=== PATIENT | male | born 1965 | race Caucasian/White ===

== ENCOUNTER 2018-05-20 15:46 | Inpatient (IN) ==
[2018-05-20] MEDS ORDERED: Ipratropium/Albuterol Neb 3 ML IH ONE (17:23)
--- NOTE | 2018-05-20 17:27 | Emergency Department Note ---
Disposition Clinical Impression: Elevated d-dimer, Transaminitis, Concern about cancer without diagnosis, Elevated lipase, Hyperbilirubinemia, Lactic acidosis Leukocytosis Qualifiers: Leukocytosis type: unspecified Qualified Code(s): D72.829 - Elevated white blood cell count, unspecified Disposition: Admitted As Inpatient Condition: Fair Referrals: Pilar Hilliard MD [Primary Care Provider] - Forms: ED Satisfaction Letter, Work/School Release Time of Disposition: 21:31 General Adult HPI - General Chief complaint: ED Abdominal Pain Stated complaint: ABD Pain Time Seen by Provider: 05/20/18 17:11 Source: patient, family Mode of arrival: ambulatory Limitations: no limitations Nursing Notes Reviewed: Yes Vital Signs Reviewed: Yes - History of Present Illness HPI Narrative: Patient is a 52-year-old male that since emergency department with abdominal pain. Patient states that he has not been able to have a significant bowel movement for the past couple of days. Patient states that he has a previous history of a bowel obstruction about 16 years ago. Patient states that it did require surgery and a bowel resection. Patient states that he has had minimal gas production. States that this is abnormal for him. Patient also states that he has had a firm area in his right upper abdomen that has moved into the epigastric region. Patient states that he has not had any chest pain was in experiencing increased shortness of breath. Patient states that he does have a history of COPD does not wear any oxygen at home. Pain Scale: 9 - Related Data Home Medications Medication Instructions Recorded Confirmed Albuterol Sulfate [Albuterol 1 - 2 puff IH Q4HR 03/09/15 03/09/15 Inhaler] Atorvastatin [Lipitor] 40 mg PO DAILY 03/09/15 03/09/15 Losartan [Cozaar] 50 mg PO DAILY 03/09/15 03/09/15 amLODIPine [Norvasc] 10 mg PO DAILY 03/09/15 03/09/15 Previous Rx's Medication Instructions Recorded Aspirin Enteric Coated [Aspirin EC] 81 mg PO DAILY #30 tablet. 03/14/15 Cilostazol [Pletal] 100 mg PO BID #60 tablet 03/14/15 Clopidogrel [Plavix] 75 mg PO DAILY #30 tablet 03/14/15 Levofloxacin [Levaquin] 500 mg PO DAILY #3 tablet 03/14/15 Morphine Sulfate SR (12 HR) [MS 15 mg PO Q12HR #60 tablet.er 03/14/15 Contin] OxyCODONE/APAP 5/325 [Percocet 2 each PO Q6HR PRN #90 tablet 03/14/15 5/325] Polyethylene Glycol 3350 [MiraLAX] 17 gm PO DAILY #10 powd.pack 03/14/15 Sennosides [Senna] 8.6 mg PO BID #60 tablet 03/14/15 Allergies Allergy/AdvReac Type Severity Reaction Status Date / Time Penicillins [PCN] Allergy Anaphylaxis Verified 05/20/18 16:15 All systems ED: reviewed and negative except as stated. Constitutional: Denies: fever Cardiovascular: Denies: chest pain Respiratory: Reports: dyspnea Gastrointestinal: Reports: abdominal pain, nausea, constipation. Denies: vomiting, diarrhea Past Medical History - Past Medical History Medical history: Reports: COPD, hypertension, other Surgical history: Reports: appendectomy, cholecystectomy, colectomy, hernior rhaphy, other Psychiatric history: Reports: no psych history - Social History Smoking Status: Current every day smoker Smokeless Tobacco Status: No Alcohol use: Reports: occasionally Drug use: Reports: none Physical Exam - General Limitations: no limitations General appearance: alert, in no apparent distress - Head Head exam: atraumatic, normocephalic - Eye Eye exam: Present: normal appearance - Neck Neck exam: Present: normal inspection, full ROM, trachea midline - Respiratory Respiratory exam: Present: wheezes (Bilaterally) - Cardiovascular Cardiovascular exam: Present: normal rhythm, normal heart sounds, +S1, +S2 - Abdominal Exam Abdominal exam: Present: soft, normal bowel sounds, mass (Epigastric region ) Abdominal tenderness: Present: epigastrium, moderate - Neurological Exam Neurological exam: Present: alert, oriented X3 - Psychiatric Psychiatric exam: Present: normal affect, normal mood - Skin Skin exam: Present: warm, dry, intact Course Vital Signs Temperature 98.8 F 05/20/18 16:13 Pulse Rate 98 05/20/18 16:13 Respiratory Rate 18 05/20/18 16:13 Blood Pressure 156/102 05/20/18 16:13 O2 Sat by Pulse Oximetry 97 05/20/18 16:13 Temperature 98.8 F 05/20/18 17:30 Pulse Rate 120 05/20/18 21:00 Respiratory Rate 21 05/20/18 21:00 Blood Pressure 144/106 05/20/18 21:00 O2 Sat by Pulse Oximetry 94 05/20/18 21:00 Oxygen Delivery Oxygen Delivery Nasal Cannula Medical Decision Making - MDM Narrative Medical decision making narrative: Due the patient presented emergency Department with reports of feeling like he cannot go to the bathroom and have a bowel movement we will obtain basic laboratory testing as well as a CT scan of the abdomen and pelvis. 1832 patient's d-dimer came back elevated at greater than 16,000. We will obtain a CTA of the chest to evaluate for possible clot burden. 1938 patient has a significant transaminitis. This is elevated more than his previous laboratory testing. Patient also has an elevated lipase of 87. Patient has an elevated white blood cell count. Patient does have evidence of nitrates and small amount of leukocyte esterase in his urine. Patient denied any urinary. At this time the CTA of the chest and the CT of the abdomen and pelvis with IV and oral contrast is pending. Final disposition pending workup however I anticipate that the patient will likely need to be admitted to the hospital for further evaluation and management. 2049 radiology called to notify me that the patient has significant findings on his CT of the chest abdomen pelvis. There is concern for metastatic disease throughout the entire chest abdomen and pelvis. States that there is been lesions seen on the liver as well as bony metastases at L2. There is difficulty identifying the primary source of the cancer or lesion. Based on these findings there is a discussion had with the patient and he was informed that there is a likely metastatic cancer that is been identified here in the ER. Read informed him that he would need to be admitted to the hospital for further evaluation and management and symptomatically control of his abdominal pain at this time. Patient is in agreement with this plan. 2309 called spoke the admitting hospitalist Dr. Hubbard and he is accepted the patient to their service. He did request that we add on a one-time dose of Levaquin to cover for possible infectious etiology. This will be done. Patient be admitted to the hospital this time for further evaluation and management. - Medical Records Medical records reviewed: Yes I reviewed the patient's medical records. - Lab Data Lab results reviewed: Yes I reviewed the patient's lab results. Result diagrams: 05/20/18 17:34 05/20/18 17:34 Lab Results 05/20/18 05/20/1805/20/18 Range/Units 17:34 17:34 17:34 WBC 16.8 H (4.3-11.1) K/mcL RBC 6.18 H (4.19-5.50) M/mcL Hgb 18.4 H (12.9-16.9) g/dL Hct 56.3 H (37.5-50.1) % MCV 91.1 (83.0-100.0) fL MCH 29.8 (28.0-33.3) pg MCHC 32.7 (31.6-35.5) g/dL RDW 14.3 (11.5-14.5) % Plt Count 185 (140-400) K/mcL MPV 11.1 (9.4-12.4) fL Immature Gran % 3.5 (0-4) % Seg Neutrophils % 76.5 % Lymphocytes % 12.2 % Monocytes % 6.6 % Eosinophils % 0.4 % Basophils % 0.8 % Neutrophils # 12.8 H (1.6-8.9) K/mcL Lymphocytes # 2.1 (0.6-4.6) K/mcL Monocytes # 1.1 (0.0-1.3) K/mcL Eosinophils # 0.1 (0.0-0.6) K/mcL Basophils # 0.1 (0.0-0.2) K/mcL Nucleated RBCs/100 WBC 0.3 H (0) /100 WBC D-Dimer 50830 H (0-500) ng/mLFEU Sodium 135 L (136-145) mEq/L Potassium 4.0 (3.5-5.1) mEq/L Chloride 97 L (98-107) mEq/L Carbon Dioxide 24 (23-29) mEq/L BUN 18 (6-20) mg/dL Creatinine 0.70 (0.70-1.30) mg/dL Est GFR ( Amer) > 60 (> 60) Est GFR (Non-Af Amer) > 60 (> 60) BUN/Creatinine Ratio 26 (6-26) Glucose 128 H (70-105) mg/dL Calculated Osmolality 284 (280-300) Lactic Acid (0.5-2.2) mmol/L Calcium 9.6 (8.6-10.3) mg/dL Total Bilirubin 4.4 H (0.3-1.0) mg/dL Direct Bilirubin 2.9 H (0.0-0.2) mg/dL Indirect Bilirubin 1.5 H (0.0-1.2) mg/dL AST 219 H (13-39) Units/L ALT 128 H (7-52) Units/L Alkaline Phosphatase 523 H (34-104) Units/L Troponin I 0.03 (< 0.04) ng/mL Serum Total Protein 7.1 (6.4-8.9) g/dL Albumin 3.4 L (3.5-5.7) g/dL Globulin 3.7 H (2.4-3.5) g/dL Albumin/Globulin Ratio 0.9 L (1.1-2.2) Lipase 87 H (11-82) Units/L Urine Color (Yellow) Urine Clarity (Clear) Urine pH (5.0-8.0) pH Units Ur Specific [place] (1.010-1.025) Urine Protein (Neg-Trace) mg/dL Urine Glucose (UA) (Normal) mg/dL Urine Ketones (Negative) mg/dL Urine Blood (Negative) Urine Nitrite (Negative) Urine Bilirubin (Negative) Urine Urobilinogen (Normal) mg/dL Ur Leukocyte Esterase (Negative) Urine Microscopic RBC (0-3) per hpf Urine Microscopic WBC (0-3) per hpf Ur Squamous Epith Cells (None-Few) per lpf Urine Bacteria (None-Few) per hpf Hyaline Casts (None-Few) per lpf Ur Culture Indicated? (NO) 05/20/18 05/20/18 05/20/18 Range/Units 17:44 18:35 21:26 WBC (4.3-11.1) K/mcL RBC (4.19-5.50) M/mcL Hgb (12.9-16.9) g/dL Hct (37.5-50.1) % MCV (83.0-100.0) fL MCH (28.0-33.3) pg MCHC (31.6-35.5) g/dL RDW (11.5-14.5) % Plt Count (140-400) K/mcL MPV (9.4-12.4) fL Immature Gran % (0-4) % Seg Neutrophils % % Lymphocytes % % Monocytes % % Eosinophils % % Basophils % % Neutrophils # (1.6-8.9) K/mcL Lymphocytes # (0.6-4.6) K/mcL Monocytes # (0.0-1.3) K/mcL Eosinophils # (0.0-0.6) K/mcL Basophils # (0.0-0.2) K/mcL Nucleated RBCs/100 WBC (0) /100 WBC D-Dimer (0-500) ng/mLFEU Sodium (136-145) mEq/L Potassium (3.5-5.1) mEq/L Chloride (98-107) mEq/L Carbon Dioxide (23-29) mEq/L BUN (6-20) mg/dL Creatinine (0.70-1.30) mg/dL Est GFR ( Amer) (> 60) Est GFR (Non-Af Amer) (> 60) BUN/Creatinine Ratio (6-26) Glucose (70-105) mg/dL Calculated Osmolality (280-300) Lactic Acid 3.8 H 4.0 H* (0.5-2.2) mmol/L Calcium (8.6-10.3) mg/dL Total Bilirubin (0.3-1.0) mg/dL Direct Bilirubin (0.0-0.2) mg/dL Indirect Bilirubin (0.0-1.2) mg/dL AST (13-39) Units/L ALT (7-52) Units/L Alkaline Phosphatase (34-104) Units/L Troponin I (< 0.04) ng/mL Serum Total Protein (6.4-8.9) g/dL Albumin (3.5-5.7) g/dL Globulin (2.4-3.5) g/dL Albumin/Globulin Ratio (1.1-2.2) Lipase (11-82) Units/L Urine Color Dark Yellow (Yellow) Urine Clarity Clear (Clear) Urine pH 5.5 (5.0-8.0) pH Units Ur Specific [place] 1.026 H (1.010-1.025) Urine Protein Trace (Neg-Trace) mg/dL Urine Glucose (UA) Normal (Normal) mg/dL Urine Ketones 15 H (Negative) mg/dL Urine Blood Negative (Negative) Urine Nitrite Positive A (Negative) Urine Bilirubin Large H (Negative) Urine Urobilinogen 2.0 H (Normal) mg/dL Ur Leukocyte Esterase Small H (Negative) Urine Microscopic RBC 0-3 (0-3) per hpf Urine Microscopic WBC 0-3 (0-3) per hpf Ur Squamous Epith Cells None Seen (None-Few) per lpf Urine Bacteria Moderate H (None-Few) per hpf Hyaline Casts Few (None-Few) per lpf Ur Culture Indicated? YES A (NO) - Radiology Data Radiology results reviewed: Yes I reviewed the patient's radiology results. Abdomen/Pelvis CT 05/20/18 20:10 IMPRESSION: Negative for acute pulmonary embolism. Features of widespread metastatic disease involving the chest, abdomen and pelvis, including mediastinal and hilar lymphadenopathy, diffuse pulmonary nodularity, innumerable hepatic lesions, mesenteric lymphadenopathy and lytic skeletal lesions involving L2 and the right ischium. There is no clear primary; however, certainly the superior segment left lower lobe peribronchovascular and infiltrative mass is suspicious for lung primary and small cell carcinoma in particular. This area may be amenable to endobronchial biopsy. Critical results were called by Dr. Eldon Malagon to Ben Renteria on 05/20/2018 at 8:50 p.m. D/ / 05/20/2018 21:07:38 Eldon Malagon / j carlos Interpreting Provider: Eldon Malagon Chest CTA 05/20/18 20:10 IMPRESSION: Negative for acute pulmonary embolism. Features of widespread metastatic disease involving the chest, abdomen and pelvis, including mediastinal and hilar lymphadenopathy, diffuse pulmonary nodularity, innumerable hepatic lesions, mesenteric lymphadenopathy and lytic skeletal lesions involving L2 and the right ischium. There is no clear primary; however, certainly the superior segment left lower lobe peribronchovascular and infiltrative mass is suspicious for lung primary and small cell carcinoma in particular. This area may be amenable to endobronchial biopsy. Critical results were called by Dr. Eldon Renteria on 05/20/2018 at 8:50 p.m. D/ / 05/20/2018 21:07:38 Eldon Malagon / j carlos Interpreting Provider: Eldon Malagon - EKG Data EKG #1 EKG attestation: Yes I reviewed and interpreted this EKG. EKG results narrative: Patient's EKG shows a sinus tachycardia at a rate of 134 bpm, TN interval 119, curious duration of 90, QTc 459. There is no evidence of STEMI on EKG. Attestation Statement - Attestation Attestation: I, Rafi Quarles DO, examined this patient [id number] and my medical decision-making was reviewed with Dr. Ben Renteria, Resident Physician. I agree with the documented findings, disposition and treatment plan as described except to the extent set forth below. Please see my progress notes for details.
[2018-05-20 17:54] LABS: Basophils # 0.1 K/mcL (0.0-0.2); Basophils % 0.8 %; Eosinophils # 0.1 K/mcL (0.0-0.6); Eosinophils % 0.4 %; Hemoglobin 18.4 g/dL (12.9-16.9); Immature Granulocytes % 3.5 % (0-4); Lymphocytes # 2.1 K/mcL (0.6-4.6); Lymphocytes % 12.2 %; Mean Corpuscular HGB Conc 32.7 g/dL (31.6-35.5); Mean Corpuscular Hemoglobin 29.8 pg (28.0-33.3); Mean Corpuscular Volume 91.1 fL (83.0-100.0); Mean Platelet Volume 11.1 fL (9.4-12.4); Monocytes # 1.1 K/mcL (0.0-1.3); Monocytes % 6.6 %; Neutrophils # 12.8 K/mcL (1.6-8.9); Nucleated Red Blood Cells 0.3 /100 WBC (0); Platelet Count 185 K/mcL (140-400); Red Blood Count 6.18 M/mcL (4.19-5.50); Red Cell Distribution Width 14.3 % (11.5-14.5); Segmented Neutrophils % 76.5 %
[2018-05-20 17:55] LABS: Hematocrit 56.3 % (37.5-50.1)
[2018-05-20] MEDS ORDERED: Isovue-370 500 ML INFUS..BTL IV ONE ×2 (18:09→18:33)
[2018-05-20 18:11] LABS: Alanine Aminotransferase 128 Units/L (7-52); Albumin 3.4 g/dL (3.5-5.7); Albumin/Globulin Ratio 0.9 (1.1-2.2); Alkaline Phosphatase 523 Units/L (34-104); Aspartate Amino Transferase 219 Units/L (13-39); BUN/Creatinine Ratio 26 (6-26); Bilirubin,Direct 2.9 mg/dL (0.0-0.2); Bilirubin,Indirect 1.5 mg/dL (0.0-1.2); Bilirubin,Total 4.4 mg/dL (0.3-1.0); Blood Urea Nitrogen 18 mg/dL (6-20); Calcium 9.6 mg/dL (8.6-10.3); Carbon Dioxide 24 mEq/L (23-29); Chloride 97 mEq/L (98-107); Globulin 3.7 g/dL (2.4-3.5); Glucose 128 mg/dL (70-105); Lipase 87 Units/L (11-82); Osmolality,Calculated 284 (280-300); Sodium 135 mEq/L (136-145); Total Protein 7.1 g/dL (6.4-8.9); Troponin I 0.03 ng/mL (< 0.04); eGFR For Non-African Americans > 60 (> 60)
[2018-05-20 18:50] LABS: Bilirubin,Urine Large (Negative); Blood,Urine Negative (Negative); Clarity,Urine Clear (Clear); Glucose,Urine (UA) Normal (Normal); Ketones,Urine 15 mg/dL (Negative); Leukocyte Esterase,Urine Small (Negative); Nitrite,Urine Positive (Negative); PH,Urine 5.5 pH Units (5.0-8.0); Protein,Urine Trace mg/dL (Neg-Trace); Specific Gravity,Urine 1.026 (1.010-1.025)
[2018-05-20 18:53] LABS: RBC,Urine 0-3 per hpf (0-3); Squamous Epithelial Cell,Urine None Seen per lpf (None-Few); WBC,Urine 0-3 per hpf (0-3)
[2018-05-20 19:03] LABS: Color,Urine Dark Yellow (Yellow)
[2018-05-20 19:11] LABS: Bacteria,Urine Moderate per hpf (None-Few)
[2018-05-20 19:12] LABS: Hyaline Casts,Urine Few per lpf (None-Few)
[2018-05-20] MEDS ORDERED: *HR* FentaNYL (PF) 100 MCG/2 ML VIAL IVP ONE ×2 (20:09→22:07)
[2018-05-20] MEDS ORDERED: Ondansetron 4 MG/2 ML VIAL IVP ONE (20:09)
--- NOTE | 2018-05-20 20:24 | Emergency Department Note ---
Disposition Clinical Impression: Leukocytosis, Elevated d-dimer, Transaminitis, Concern about cancer without diagnosis, Elevated lipase, Hyperbilirubinemia, Lactic acidosis Disposition: Home, Self-Care Condition: Good Referrals: Pilar Hilliard MD [Primary Care Provider] - Forms: ED Satisfaction Letter, Work/School Release Time of Disposition: 23:20 General Adult HPI - General Chief complaint: ED Abdominal Pain Stated complaint: ABD Pain Time Seen by Provider: 05/20/18 17:11 Source: patient, family Mode of arrival: ambulatory Limitations: no limitations - History of Present Illness Pain Scale: 9 - Related Data Home Medications Medication Instructions Recorded Confirmed Albuterol Sulfate [Albuterol 1 - 2 puff IH Q4HR 03/09/15 03/09/15 Inhaler] Atorvastatin [Lipitor] 40 mg PO DAILY 03/09/15 03/09/15 Losartan [Cozaar] 50 mg PO DAILY 03/09/15 03/09/15 amLODIPine [Norvasc] 10 mg PO DAILY 03/09/15 03/09/15 Previous Rx's Medication Instructions Recorded Aspirin Enteric Coated [Aspirin EC] 81 mg PO DAILY #30 tablet.dr 03/14/15 Cilostazol [Pletal] 100 mg PO BID #60 tablet 03/14/15 Clopidogrel [Plavix] 75 mg PO DAILY #30 tablet 03/14/15 Levofloxacin [Levaquin] 500 mg PO DAILY #3 tablet 03/14/15 Morphine Sulfate SR (12 HR) [MS 15 mg PO Q12HR #60 tablet.er 03/14/15 Contin] OxyCODONE/APAP 5/325 [Percocet 2 each PO Q6HR PRN #90 tablet 03/14/15 5/325] Polyethylene Glycol 3350 [MiraLAX] 17 gm PO DAILY #10 powd.pack 03/14/15 Sennosides [Senna] 8.6 mg PO BID #60 tablet 03/14/15 Allergies Allergy/AdvReac Type Severity Reaction Status Date / Time Penicillins [PCN] Allergy Anaphylaxis Verified 05/20/18 16:15 Constitutional: Denies: fever Cardiovascular: Denies: chest pain Respiratory: Reports: dyspnea Gastrointestinal: Reports: abdominal pain, nausea, constipation. Denies: vomiting, diarrhea Past Medical History - Past Medical History Medical history: Reports: COPD, hypertension, other Surgical history: Reports: appendectomy, cholecystectomy, colectomy, herniorrhaphy, other Psychiatric history: Reports: no psych history - Social History Smoking Status: Current every day smoker Smokeless Tobacco Status: No Alcohol use: Reports: occasionally Drug use: Reports: none Physical Exam - General Limitations: no limitations General appearance: alert, in no apparent distress Course Vital Signs Temperature 98.8 F 05/20/18 16:13 Pulse Rate 98 05/20/18 16:13 Respiratory Rate 18 05/20/18 16:13 Blood Pressure 156/102 05/20/18 16:13 O2 Sat by Pulse Oximetry 97 05/20/18 16:13 Temperature 98.8 F 05/20/18 17:30 Pulse Rate 120 05/20/18 21:00 Respiratory Rate 21 05/20/18 21:00 Blood Pressure 144/106 05/20/18 21:00 O2 Sat by Pulse Oximetry 94 05/20/18 21:00 Oxygen Delivery Oxygen Delivery Nasal Cannula Medical Decision Making - Lab Data Result diagrams: 05/20/18 17:34 05/20/18 17:34 Lab Results 05/20/18 05/20/18 05/20/18 Range/Units 17:34 17:34 17:34 WBC 16.8 H (4.3-11.1) K/mcL RBC 6.18 H (4.19-5.50) M/mcL Hgb 18.4 H (12.9-16.9) g/dL Hct 56.3 H (37.5-50.1) % MCV 91.1 (83.0-100.0) fL MCH 29.8 (28.0-33.3) pg MCHC 32.7 (31.6-35.5) g/dL RDW 14.3 (11.5-14.5) % Plt Count 185 (140-400) K/mcL MPV 11.1 (9.4-12.4) fL Immature Gran % 3.5 (0-4) % Seg Neutrophils % 76.5 % Lymphocytes % 12.2 % Monocytes % 6.6 % Eosinophils % 0.4 % Basophils % 0.8 % Neutrophils # 12.8 H (1.6-8.9) K/mcL Lymphocytes # 2.1 (0.6-4.6) K/mcL Monocytes # 1.1 (0.0-1.3) K/mcL Eosinophils # 0.1 (0.0-0.6) K/mcL Basophils # 0.1 (0.0-0.2) K/mcL Nucleated RBCs/100 WBC 0.3 H (0) /100 WBC D-Dimer 74326 H (0-500) ng/mLFEU Sodium 135 L (136-145) mEq/L Potassium 4.0 (3.5-5.1) mEq/L Chloride 97 L (98-107) mEq/L Carbon Dioxide 24 (23-29) mEq/L BUN 18 (6-20) mg/dL Creatinine 0.70 (0.70-1.30) mg/dL Est GFR ( Amer) > 60 (> 60) Est GFR (Non-Af Amer) > 60 (> 60) BUN/Creatinine Ratio 26 (6-26) Glucose 128 H (70-105) mg/dL Calculated Osmolality 284 (280-300) Lactic Acid (0.5-2.2) mmol/L Calcium 9.6 (8.6-10.3) mg/dL Total Bilirubin 4.4 H (0.3-1.0) mg/dL Direct Bilirubin 2.9 H (0.0-0.2) mg/dL Indirect Bilirubin 1.5 H (0.0-1.2) mg/dL AST 219 H (13-39) Units/L ALT 128 H (7-52) Units/L Alkaline Phosphatase 523 H (34-104) Units/L Troponin I 0.03 (< 0.04) ng/mL Serum Total Protein 7.1 (6.4-8.9) g/dL Albumin 3.4 L (3.5-5.7) g/dL Globulin 3.7 H (2.4-3.5) g/dL Albumin/Globulin Ratio 0.9 L (1.1-2.2) Lipase 87 H (11-82) Units/L Urine Color (Yellow) Urine Clarity (Clear) Urine pH (5.0-8.0) pH Units Ur Specific [address] (1.010-1.025) Urine Protein (Neg-Trace) mg/dL Urine Glucose (UA) (Normal) mg/dL Urine Ketones (Negative) mg/dL Urine Blood (Negative) Urine Nitrite (Negative) Urine Bilirubin (Negative) Urine Urobilinogen (Normal) mg/dL Ur Leukocyte Esterase (Negative) Urine Microscopic RBC (0-3) per hpf Urine Microscopic WBC (0-3) per hpf Ur Squamous Epith Cells (None-Few) per lpf Urine Bacteria (None-Few) per hpf Hyaline Casts (None-Few) per lpf Ur Culture Indicated? (NO) 05/20/18 05/20/18 05/20/18 Range/Units 17:44 18:35 21:26 WBC (4.3-11.1) K/mcL RBC (4.19-5.50) M/mcL Hgb (12.9-16.9) g/dL Hct (37.5-50.1) % MCV (83.0-100.0) fL MCH (28.0-33.3) pg MCHC (31.6-35.5) g/dL RDW (11.5-14.5) % Plt Count (140-400) K/mcL MPV (9.4-12.4) fL Immature Gran % (0-4) % Seg Neutrophils % % Lymphocytes % % Monocytes % % Eosinophils % % Basophils % % Neutrophils # (1.6-8.9) K/mcL Lymphocytes # (0.6-4.6) K/mcL Monocytes # (0.0-1.3) K/mcL Eosinophils # (0.0-0.6) K/mcL Basophils # (0.0-0.2) K/mcL Nucleated RBCs/100 WBC (0) /100 WBC D-Dimer (0-500) ng/mLFEU Sodium (136-145) mEq/L Potassium (3.5-5.1) mEq/L Chloride (98-107) mEq/L Carbon Dioxide (23-29) mEq/L BUN (6-20) mg/dL Creatinine (0.70-1.30) mg/dL Est GFR ( Amer) (> 60) Est GFR (Non-Af Amer) (> 60) BUN/Creatinine Ratio (6-26) Glucose (70-105) mg/dL Calculated Osmolality (280-300) Lactic Acid 3.8 H 4.0 H* (0.5-2.2) mmol/L Calcium (8.6-10.3) mg/dL Total Bilirubin (0.3-1.0) mg/dL Direct Bilirubin (0.0-0.2) mg/dL Indirect Bilirubin (0.0-1.2) mg/dL AST (13-39) Units/L ALT (7-52) Units/L Alkaline Phosphatase (34-104) Units/L Troponin I (< 0.04) ng/mL Serum Total Protein (6.4-8.9) g/dL Albumin (3.5-5.7) g/dL Globulin (2.4-3.5) g/dL Albumin/Globulin Ratio (1.1-2.2) Lipase (11-82) Units/L Urine Color Dark Yellow (Yellow) Urine Clarity Clear (Clear) Urine pH 5.5 (5.0-8.0) pH Units Ur Specific [address] 1.026 H (1.010-1.025) Urine Protein Trace (Neg-Trace) mg/dL Urine Glucose (UA) Normal (Normal) mg/dL Urine Ketones 15 H (Negative) mg/dL Urine Blood Negative (Negative) Urine Nitrite Positive A (Negative) Urine Bilirubin Large H (Negative) Urine Urobilinogen 2.0 H (Normal) mg/dL Ur Leukocyte Esterase Small H (Negative) Urine Microscopic RBC 0-3 (0-3) per hpf Urine Microscopic WBC 0-3 (0-3) per hpf Ur Squamous Epith Cells None Seen (None-Few) per lpf Urine Bacteria Moderate H (None-Few) per hpf Hyaline Casts Few (None-Few) per lpf Ur Culture Indicated? YES A (NO) Attestation Statement - Attestation Attestation: I, Rafi Quarles DO, examined this patient [id number] and my medical decision-making was reviewed with Dr. Ben Renteria, Resident Physician. I agree with the documented findings, disposition and treatment plan as described except to the extent set forth below. Please see my progress notes for details. 52-year-old male presents to the emergency room for evaluation of abdominal pain. Patient has noted some progressively worsening swelling in his abdominal area and some increased work of breathing. He denies any specific history of cardiac related disease. Denies any falls trauma or injury. Denies any chest pain or shortness of breath. He has felt his heart racing. Denies any fevers or chills. No nausea no vomiting. He had had intermittent diarrhea and also been stopped having bowel movements approximately 2 days ago. He has had a history of obstruction in the past with an unknown etiology. He decided come in emergency room for evaluation. Patient is a heavy smoker and does drink alcohol daily. Patient is concerning for potential etiologies including cardiac pulmonary and intra-abdominal. He does have a firm mass in the right upper quadrant and epigastrium. Patient does not disclose any significant weight gain. He has not noticed any jaundice. He is tachycardic but otherwise his vital signs are stable. Breathing treatments, CBC, chemistry, liver function testing, lipase as well as symptomatic control including fluids pain medication nausea medication will be given. CT imaging of the abdomen with oral and IV contrast will be ordered at this time to rule out any signs of obstruction versus bowel related issues. Concern is also present for the patient having some cancerous related source to the symptoms here today. Disposition to be determined once full workup treatment course and stabilization have been established. Patient family informed of the projected course of care and they are comfortable at this time. Patient otherwise has a negative physical exam is clear lungs heart regular but tachycardic with no murmur. Abdomen is distended firm and no pulsatile masses or lesions noted. Bedside point of care ultrasound was utilized and did not show any free fluid in the abdomen or signs of ascites. Patient did have a large midline abdominal surgical site secondary to an appendectomy that appears to be stable no signs of specific hernia. See detailed documentation of the physical exam, medical intervention, medical decision-making and disposition in the resident physician's note. No critical care provider the patient's treatment course at this time. 2100 Patient is found to have diffuse metastatic disease to the bones chest wall and abdomen. He is still tachycardic here at this time. No visible signs of pulmonary emboli. Fluids and pain medication will be provided. Symptomatically controlled will be continued at this point and then disposition will most likely be admission for establishing the treatment course. We will discuss this with the patient once the remainder the labs and fluids have been given. 2300 Dr. Hubbard reviewed the case and no other recommendations or concerns at this time. Patient will be brought in for oncology evaluation as well as symptomatic control and treatment course. Patient is otherwise currently stable will be monitored in emergency room until admission process is completed. Antibiotic regiment was requested. This will be ordered in the chart at this time.
[2018-05-20] MEDS ORDERED: Isovue-370 500 ML INFUS..BTL PO ONE (20:30)
[2018-05-20] MEDS: 0.9 % Sodium Chloride 1,000 ML IVC SCH (21:34)
[2018-05-20] MEDS ORDERED: Levofloxacin 750 MG/150 ML 750 MG/150 ML BAG IVPB ONE (23:10)
[2018-05-21] MEDS: 0.9 % Sodium Chloride 1,000 ML IVC SCH ×3 (01:44→21:54)
[2018-05-21] MEDS ORDERED: *HR* FentaNYL (PF) 100 MCG/2 ML VIAL IVP PRN (01:55)
[2018-05-21] MEDS ORDERED: Ibuprofen 400 MG TABLET PO PRN (09:15)
[2018-05-21] MEDS ORDERED: Naloxone 0.4 MG/ML INJ IVP PRN (09:15)
[2018-05-21] MEDS ORDERED: Lactulose Oral Soln 20 GM/30 ML UDC PO ONE (09:19)
[2018-05-21] MEDS ORDERED: *HR* LORazepam 2 MG/ML VIAL IVP PRN ×3 (09:22)
--- NOTE | 2018-05-21 10:21 | Internal Med History&Physical ---
Date of Encounter: 05/21/18 Time of Encounter: 08:00 Internal Medicine - H&P: HPI Chief complaint: Abdominal pain Admitted From: Home Plans for Post Hospital Care: Home History of present illness: Mr. Wong is a 52 year old male presented to ER for abdominal pain. Past medical history is significant for hypertension, COPD, history of CVA with right-sided residual weakness, alcoholism. Patient has abdominal pain on the upper part of abdominal for several weeks. Mild nausea, no vomiting. Patient complaining constipation for 4-5 days. No fever, no chills. Denies night sweating. Patient has body weight loss from 180 lbs to 165 lbs in last 2 weeks. Patient has tachycardia in the emergency room, which improved after IV fluid 2L. CTA chest and abdomen shows diffused metastasis disease involving in chest and liver and bone. Patient was admitted for further management. I have discussed CODE STATUS with this patient. Patient is AAO 3, clearly told me he does not want CPR or intubation. DNR DNI placed. Past Med Surg Social Fam HX - Past Medical History Medical history: COPD, hypertension, other Additional medical history: bowel obstruction Psychiatric history: no psych history - Past Surgical History Surgical History: appendectomy, cholecystectomy, colectomy, herniorrhaphy, other Additional surgical history: colon resection, neck surgery - Social History Smoking Status: Current every day smoker Packs per day: pipe Smokeless Tobacco Status: No Alcohol use: occasionally Drug use: none - Family History Mother History Unknown: Yes Internal Medicine - H&P: Meds Albuterol Sulfate [Albuterol Inhaler] 1 - 2 puff IH Q4HR 03/09/15 [History] Atorvastatin [Lipitor] 40 mg PO DAILY 03/09/15 [History] Losartan [Cozaar] 50 mg PO DAILY 03/09/15 [History] amLODIPine [Norvasc] 10 mg PO DAILY 03/09/15 [History] Aspirin Enteric Coated [Aspirin EC] 81 mg PO DAILY #30 tablet. 03/14/15 [Rx] Cilostazol [Pletal] 100 mg PO BID #60 tablet 03/14/15 [Rx] Clopidogrel [Plavix] 75 mg PO DAILY #30 tablet 03/14/15 [Rx] Levofloxacin [Levaquin] 500 mg PO DAILY #3 tablet 03/14/15 [Rx] Morphine Sulfate SR (12 HR) [MS Contin] 15 mg PO Q12HR #60 tablet.er 03/14/15 [Rx] OxyCODONE/APAP 5/325 [Percocet 5/325] 2 each PO Q6HR PRN #90 tablet 03/14/15 [Rx] Polyethylene Glycol 3350 [MiraLAX] 17 gm PO DAILY #10 powd.pack 03/14/15 [Rx] Sennosides [Senna] 8.6 mg PO BID #60 tablet 03/14/15 [Rx] Allergy/AdvReac Type Severity Reaction Status Date / Time Penicillins [PCN] Allergy Anaphylaxis Verified 05/20/18 16:15 All Systems PM: A 10-system review of systems was performed and is negative for pertinent findings except as documented above in the HPI. - Constitutional Vitals: Temp Pulse Resp BP Pulse Ox 98.1 F 63 17 144/93 96 05/21/18 06:57 05/21/18 06:57 05/21/18 06:57 05/21/18 06:57 05/21/18 06:57 Exam: Pt is AAO x 3, in NAD HEENT: NC/AT, PERRL Neck: Supple, no JVD, no LAD Lungs: CTA b/l Heart: S1S2, RRR Abd: Soft, diffused tender w/o rebound or guarding, BS present Ext: ROM wnl, no pedal edema Neuro: Right arm weakness due to previous CVA Internal Med - H&P Results - Labs CBC & Chem 7: 05/20/18 17:34 05/20/18 17:34 Labs: Short CBC 05/20/18 Range/Units 17:34 WBC 16.8 H (4.3-11.1) K/mcL Hgb 18.4 H (12.9-16.9) g/dL Hct 56.3 H (37.5-50.1) % Plt Count 185 (140-400) K/mcL Neutrophils # 12.8 H (1.6-8.9) K/mcL BMP 05/20/18 17:34 Sodium 135 L Potassium 4.0 Chloride 97 L Carbon Dioxide 24 BUN 18 Creatinine 0.70 Glucose 128 H Calcium 9.6 Cardiac Enzymes 05/20/18 Range/Units 17:34 Troponin I 0.03 (< 0.04) ng/mL Liver Function 05/20/18 Range/Units 17:34 Total Bilirubin 4.4 H (0.3-1.0) mg/dL Direct Bilirubin 2.9 H (0.0-0.2) mg/dL AST 219 H (13-39) Units/L ALT 128 H (7-52) Units/L Alkaline Phosphatase 523 H (34-104) Units/L Albumin 3.4 L (3.5-5.7) g/dL Urine 05/20/18 Range/Units 18:35 Urine Color Dark Yellow (Yellow) Urine Clarity Clear (Clear) Urine pH 5.5 (5.0-8.0) pH Units Ur Specific [place] 1.026 H (1.010-1.025) Urine Protein Trace (Neg-Trace) mg/dL Urine Glucose (UA) Normal (Normal) mg/dL - Impressions ITS Impressions Abdomen/Pelvis CT 05/20/18 20:10 IMPRESSION: Negative for acute pulmonary embolism. Features of widespread metastatic disease involving the chest, abdomen and pelvis, including mediastinal and hilar lymphadenopathy, diffuse pulmonary nodularity, innumerable hepatic lesions, mesenteric lymphadenopathy and lytic skeletal lesions involving L2 and the right ischium. There is no clear primary; however, certainly the superior segment left lower lobe peribronchovascular and infiltrative mass is suspicious for lung primary and small cell carcinoma in particular. This area may be amenable to endobronchial biopsy. Critical results were called by Dr. Eldon Malagon to Ben Renteria on 05/20/2018 at 8:50 p.m. D/ / 05/20/2018 21:07:38 Eldon Malagon / j carlos Interpreting Provider: Eldon Malagon Chest CTA 05/20/18 20:10 IMPRESSION: Negative for acute pulmonary embolism. Features of widespread metastatic disease involving the chest, abdomen and pelvis, including mediastinal and hilar lymphadenopathy, diffuse pulmonary nodularity, innumerable hepatic lesions, mesenteric lymphadenopathy and lytic skeletal lesions involving L2 and the right ischium. There is no clear primary; however, certainly the superior segment left lower lobe peribronchovascular and infiltrative mass is suspicious for lung primary and small cell carcinoma in particular. This area may be amenable to endobronchial biopsy. Critical results were called by Dr. Eldon Malagon to Ben Renteria on 05/20/2018 at 8:50 p.m. D/ / 05/20/2018 21:07:38 Eldon Malagon / j carlos Interpreting Provider: Eldon Malagon - Assessment and plan (1) SIRS (systemic inflammatory response syndrome) Current Visit: Yes Status: Acute Assessment and plan: Patient to meet SIRS criteria with leukocytosis and tachycardia. With elevated lactate. No signs of infection identified. - Most likely due to progressive cancer and dehydration - IV fluid resuscitation started the from ER. Continue IV fluid - 1 dose of Levaquin was given ER empirically. Will continue at this point but may stop if blood culture negative. - Repeat lactate level in a.m. (2) Dehydration Current Visit: Yes Status: Acute Assessment and plan: Continue IV fluid. (3) Metastatic cancer Current Visit: Yes Status: Acute Assessment and plan: Patient has body weight loss and CT shows metastatic disease. - Oncology consult was called - May consider liver biopsy - Continue pain management (4) Abnormal liver function Current Visit: Yes Status: Acute Assessment and plan: Most likely due to liver metastasis. Closely monitor liver function. Avoid hepatic toxic medications (5) Elevated d-dimer Current Visit: Yes Status: Acute Assessment and plan: CTA shows no PE. Possibly due to progressive cancer. Will check Doppler venous to rule out DVT (6) Lactic acidosis Current Visit: Yes Status: Acute Assessment and plan: Management as above (7) COPD (chronic obstructive pulmonary disease) Current Visit: No Status: Acute Assessment and plan: No signs of exacerbation. Continue home medications Qualifiers: COPD type: emphysema Emphysema type: unspecified Qualified Code(s): J43.9 - Emphysema, unspecified (8) Tobacco abuse Current Visit: Yes Status: Acute Assessment and plan: Smoking cessation education. Patient does not want nicotine patch (9) Alcoholism Current Visit: Yes Status: Acute Assessment and plan: Drink 3-15 beers daily. Stopped drinking for about 2 weeks because of abdominal pain. - No signs of alcohol withdrawal at this point - Place patient on CIWA protocol (10) Constipation Current Visit: Yes Status: Acute Assessment and plan: Place patient on docusate 100 mg twice a day. Give 1 dose of lactulose for constipation. Qualifiers: Constipation type: slow transit constipation Qualified Code(s): K59.01 - Slow transit constipation (11) DVT prophylaxis Current Visit: Yes Status: Acute Assessment and plan: Lovenox sc (12) History of CVA (cerebrovascular accident) Current Visit: Yes Status: Acute Assessment and plan: Continue home medication Plavix and aspirin and statin. - Time Spent With Patient Total time spent is greater than 50% in coordination of care (as documented) at patient's floor/unit and/or counseling patient: 40 minutes Greater than 35 minutes
[2018-05-21] MEDS: amLODIPine 5 MG TABLET PO SCH (11:44)
[2018-05-21] MEDS: *HR* OxyCODONE Immed Rel 5 MG TABLET PO PRN ×3 (11:46→22:29)
[2018-05-21] MEDS: *HR* Enoxaparin 40 MG/0.4 ML SYRINGE SQ SCH (11:55)
--- NOTE | 2018-05-21 14:10 | Oncology Inp Consult Note ---
Date of Encounter: 05/21/18 Time of Encounter: 14:02 Assessment and Plan (1) Concern about cancer without diagnosis Status: Acute Assessment and plan: Widespread liver metastasis. Also yellow to vertebral metastasis 3 cm lytic lesion. He is fairly asymptomatic from the bone metastases. Also small mediastinal adenopathy and left lower lobe nodule about [address]-guided liver biopsy of the dominant 3.8 cm anteriorly located nodule in the liver. Small cell carcinoma is high in the differential Consider imaging the brain with MRI with and without contrast. 2. Previous history of stroke with right hemiparesis 2016. 3. History of alcohol and tobacco abuse 4. Erythrocytosis. Could be hemoconcentration. If necessary may consider phlebotomy 5. Elevated liver enzymes jaundice. Likely from liver metastasis. We will repeat viral hepatitis panel and HIV. Also check uric acid - Data of Consult Patient: new to practice Requesting Physician: Emeterio Hubbard MD Primary Care Provider: Pilar Hilliard MD - Consult Narrative Reason for consult: Widespread metastasis, primary likely lung History of present illness: Admitted to the right upper quadrant abdominal pain for 2 weeks radiating to the left side. History of smoking for 30+ years he smokes cigars. Also drinks 12 pack beer on a daily basis Lipase mildly elevated at 87. Could be probably hemoconcentrated hemoglobin 18. Some of the high hemoglobin could be secondary to smoking. He previously had stroke with right-sided weakness in 2016. He denied any headaches. Still has right upper sided residual weakness Elevated liver enzymes. Also jaundice with he total bilirubin 4.4 and indirect 2.9. This could be secondary to liver metastasis. No evidence of cholestasis. Hepatomegaly craniocaudal [address] angiogram chest on 05/20/[address] abdomen and pelvis with contrast on 05/20/2018 showed features of widespread metastatic disease involving the chest, abdomen and pelvis, including mediastinal and hilar lymphadenopathy, diffuse pulmonary nodularity, innumerable hepatic lesions, mesenteric lymphadenopathy and lytic skeletal lesions involving L2 and the right ischium. There is no clear primary; however, certainly the superior segment left lower lobe peribronchovascular and infiltrative mass is suspicious for lung primary and small cell carcinoma in particular. Lab work on 05/20/2018 Hemoglobin 18.4, platelets 185, neutrophils 13,000 Liver enzymes elevated AST 2:15 ALT 128 and alkaline phosphatase 500. His liver enzymes are normal in 2015. Hepatitis C and HIV negative in 2015 Past Med Surg Social Fam HX - Past Medical History Medical history: COPD, hypertension, other Additional medical history: bowel obstruction Psychiatric history: no psych history - Past Surgical History Surgical History: appendectomy, cholecystectomy, colectomy, herniorrhaphy, other Additional surgical history: colon resection, neck surgery - Social History Smoking Status: Current every day smoker Packs per day: pipe Smokeless Tobacco Status: No Alcohol use: occasionally Drug use: none - Family History Mother History Unknown: Yes Medications and Allergies No Known Home Drugs 05/23/18 [History] Allergy/AdvReac Type Severity Reaction Status Date / Time Penicillins [PCN] Allergy Anaphylaxis Verified 05/20/18 16:15 Review of systems: Weight loss, failure to thrive. Denied headaches. Has no diagnosis of cancer in the past. Muscle weakness. No neurological deficit. Shortness of breath with exertion. Nonspecific abdominal pain Oncology - Exam - Constitutional Exam: GENERAL: Alert and oriented, fatigued. Mental Status: Affect appropriate for circumstances HEENT: Sclerae anicteric. No mucositis or thrush. No other oral or pharyngeal lesions or erythema. Skin: No rashes or petechiae. No evidence of skin malignancy Lymph nodes: No cervical, supraclavicular, axillary, or inguinal adenopathy. Lungs: Air entry normal with normal breath sounds. No rhonchi or wheezing Cardiovascular: Regular rate and rhythm. No skipped beats Abdomen: Soft, nonspecific tenderness mainly upper quadrant; no organomegaly or masses palpable. Extremities: No edema. No calf swelling or tenderness. No joint deformity. Neurologic: Alert, cranial nerves II-XII intact; normal gait; no focal weakness or sensory abnormalities. Deconditioning but no focal deficit Consult Discharge Plan - Plan Referrals: Pilar Hilliard MD [Primary Care Provider] - Inpatient Charges Provider: Dr. Sonal Reveles Consult - Inpatient: [id number]
[2018-05-21] MEDS ORDERED: Gadolinium Contrast Agent (WT Based) IV PRN (15:20)
[2018-05-21 15:57] LABS: Carcinoembryonic Antigen > 850.0 ng/mL (Less than 5.0); Lactate Dehydrogenase 1397 Units/L (140-271); Uric Acid 6.9 mg/dL (2.3-7.6)
[2018-05-21 16:02] LABS: Hepatitis B Core IgM Nonreactive (Nonreactive); Hepatitis B Surface Antigen Nonreactive (Nonreactive); Hepatitis C Virus Antibody Nonreactive (Nonreactive)
[2018-05-21 16:38] LABS: HIV-1&2 Antibody & p24 Ag Nonreactive (Nonreactive); Hepatitis A Antibody IgM Nonreactive (Nonreactive)
[2018-05-21] MEDS: Levofloxacin 750 MG/150 ML 750 MG/150 ML BAG IVPB SCH (22:26)
[2018-05-22] MEDS: *HR* OxyCODONE Immed Rel 5 MG TABLET PO PRN ×3 (04:44→12:28)
[2018-05-22] MEDS: *HR* Enoxaparin 40 MG/0.4 ML SYRINGE SQ SCH (04:44)
[2018-05-22 04:52] LABS: Basophils # 0.2 K/mcL (0.0-0.2); Basophils % 1.2 %; Eosinophils # 0.2 K/mcL (0.0-0.6); Eosinophils % 1.4 %; Hematocrit 50.2 % (37.5-50.1); Immature Granulocytes % 5.2 % (0-4); Lymphocytes # 2.3 K/mcL (0.6-4.6); Lymphocytes % 18.6 %; Mean Corpuscular HGB Conc 32.1 g/dL (31.6-35.5); Mean Corpuscular Volume 93.7 fL (83.0-100.0); Mean Platelet Volume 10.8 fL (9.4-12.4); Monocytes # 0.9 K/mcL (0.0-1.3); Monocytes % 6.9 %; Neutrophils # 8.3 K/mcL (1.6-8.9); Nucleated Red Blood Cells 0.3 /100 WBC (0); Platelet Count 150 K/mcL (140-400); Red Blood Count 5.36 M/mcL (4.19-5.50); Red Cell Distribution Width 14.5 % (11.5-14.5); Segmented Neutrophils % 66.7 %
[2018-05-22 04:57] LABS: Hemoglobin 16.1 g/dL (12.9-16.9)
[2018-05-22 05:10] LABS: Alanine Aminotransferase 135 Units/L (7-52); Alkaline Phosphatase 481 Units/L (34-104); Aspartate Amino Transferase 258 Units/L (13-39); BUN/Creatinine Ratio 18 (6-26); Bilirubin,Direct 2.4 mg/dL (0.0-0.2); Bilirubin,Indirect 1.5 mg/dL (0.0-1.2); Bilirubin,Total 3.9 mg/dL (0.3-1.0); Blood Urea Nitrogen 11 mg/dL (6-20); Calcium 8.9 mg/dL (8.6-10.3); Carbon Dioxide 26 mEq/L (23-29); Chloride 95 mEq/L (98-107); Globulin 3.1 g/dL (2.4-3.5); Glucose 81 mg/dL (70-105); Osmolality,Calculated 268 (280-300); Potassium 3.8 mEq/L (3.5-5.1); Sodium 130 mEq/L (136-145); Total Protein 6.1 g/dL (6.4-8.9); eGFR For Non-African Americans > 60 (> 60)
[2018-05-22 05:46] LABS: Platelet Estimate Normal (Normal)
[2018-05-22] MEDS: Aspirin Enteric Coated 81 MG Tablet PO SCH (07:37)
[2018-05-22] MEDS: Vitamin B Complex/Vit C/Vit E 1 EACH TABLET PO SCH (07:37)
[2018-05-22] MEDS: Folic Acid 1 MG TABLET PO SCH (07:37)
[2018-05-22] MEDS: Thiamine (B-1) 100 MG TABLET PO SCH (07:37)
[2018-05-22] MEDS: amLODIPine 5 MG TABLET PO SCH (07:39)
[2018-05-22] MEDS: Ondansetron 4 MG/2 ML VIAL IVP PRN (15:59)
[2018-05-22] MEDS ORDERED: 0.9 % Sodium Chloride w KCl 20 MEQ/1,000 ML MLS IVC SCH (17:00)
[2018-05-22] MEDS ORDERED: *HR* Morphine Sulfate SR (12 HR) 15 MG TABLET.ER PO SCH (18:00)
--- NOTE | 2018-05-22 22:33 | Internal Med Progress Note ---
Hospitalist Progress Note - Encounter Date of Encounter: 05/22/18 Time of Encounter: 19:00 - Subjective Interval History: SUBJECTIVE: The patient feels stronger. He continues to have epigastric pain, mostly on the right side. Denies nausea and vomiting. His constipation subsided. It was today afternoon, when we noticed him making less urine. Bladder scan was obtained. Each showed small amount of urine inside the bladder. OBJECTIVE: Skin: Free of rash and discoloration. ENMT: Oral/pharyngeal mucosa is normal in appearance. Eyes: Sclera is white. There is no discharge from eyes. Respiratory: Normal breath sounds; no crackles or wheezes. CV: Heart is regular; no gallop or murmur. GI: There is mild tenderness at palpation of the area located below the right ribs, anteriorly. Neuro: There is no focal deficits. ADDITIONAL DATA: Hemoglobin 16.1 with a WBC of 12.4 thousand (16.8 thousand yesterday). Sodium is 130; 135 2 days ago. Potassium is 3.8. Creatinine is 0.62. He has elevated bilirubin at 3.9; 4.4 2 days ago. See results of CT angios of chest and abdomen/pelvis. The studies are showing disseminated metastatic cancer with source probably in the lungs. ASSESSMENT AND PLAN: Metastatic cancer. See notes from oncology. The patient will have CT-guided biopsy of a prominent liver lesion. COPD. His pulse ox is at low 90shad room air oxygen. Abnormal liver function tests. Secondary to metastasis. This problem seems to be fairly stable today. Hepatitis panel and testing for HIV is negative. Chronic alcoholism. We will be watching him for withdrawal symptoms. He will get when necessary Ativan. Hypertension/hyperlipidemia. To continue Cozaar/Norvasc and Lipitor. - Exam Vitals: Temp Pulse Resp BP Pulse Ox 97.4 F L 103 15 103/69 94 05/22/18 19:32 05/22/18 19:32 05/22/18 19:32 05/22/18 19:32 05/22/18 19:32 Exam: xx - Assessment and Plan (1) Metastatic cancer Current Visit: Yes Status: Acute (2) COPD (chronic obstructive pulmonary disease) Current Visit: No Status: Acute (3) Abnormal liver function Current Visit: Yes Status: Acute (4) Alcoholism Current Visit: Yes Status: Chronic (5) HTN (hypertension) Current Visit: Yes Status: Chronic (6) HLD (hyperlipidemia) Current Visit: Yes Status: Acute (7) History of CVA (cerebrovascular accident) Current Visit: Yes Status: Acute - Time Spent with Patient Total time spent is greater than 50% in coordination of care (as documented) at patient's floor/unit and/or counseling patient: 25 - 35 minutes Plan of Care Discussed with: patient Internal Medicine: Result - Labs CBC & Chem 7: 05/22/18 04:39 05/22/18 04:39 Labs: Short CBC 05/22/18 Range/Units 04:39 WBC 12.4 H (4.3-11.1) K/mcL Hgb 16.1 D (12.9-16.9) g/dL Hct 50.2 H (37.5-50.1) % Plt Count 150 (140-400) K/mcL Neutrophils # 8.3 (1.6-8.9) K/mcL BMP 05/22/18 04:39 Sodium 130 L Potassium 3.8 Chloride 95 L Carbon Dioxide 26 BUN 11 Creatinine 0.62 L Glucose 81 Calcium 8.9 Liver Function 05/22/18 Range/Units 04:39 Total Bilirubin 3.9 H (0.3-1.0) mg/dL Direct Bilirubin 2.4 H (0.0-0.2) mg/dL AST 258 H (13-39) Units/L ALT 135 H (7-52) Units/L Alkaline Phosphatase 481 H (34-104) Units/L Albumin 3.0 L (3.5-5.7) g/dL - ABG Interpretation ABG results: PT/INR, D-dimer D-Dimer 72533 ng/mLFEU (0-500) H 05/20/18 17:34 Consult Discharge Plan - Plan Referrals: Pilar Hilliard MD [Primary Care Provider] - (2) COPD (chronic obstructive pulmonary disease) Qualifiers: COPD type: emphysema Emphysema type: unspecified Qualified Code(s): J43.9 - Emphysema, unspecified (5) HTN (hypertension) Qualifiers: Hypertension type: essential hypertension Qualified Code(s): I10 - Essential (primary) hypertension (6) HLD (hyperlipidemia) Qualifiers: Hyperlipidemia type: unspecified Qualified Code(s): E78.5 - Hyperlipidemia, unspecified
[2018-05-22] MEDS: 0.9 % Sodium Chloride 1,000 ML IVC SCH (22:36)
[2018-05-22] MEDS: Levofloxacin 750 MG/150 ML 750 MG/150 ML BAG IVPB SCH (22:47)
[2018-05-23] MEDS: *HR* OxyCODONE Immed Rel 5 MG TABLET PO PRN ×4 (00:36→15:26)
[2018-05-23] MEDS ORDERED: Ketorolac 15 MG/ML VIAL IVP PRN (02:02)
[2018-05-23] MEDS ORDERED: 0.9 % Sodium Chloride w KCl 20 MEQ/1,000 ML MLS IVC SCH ×2 (02:20→02:23)
[2018-05-23] MEDS ORDERED: 0.9 % Sodium Chloride 500 ML IVC ONE ×2 (02:24→23:36)
[2018-05-23 05:04] LABS: Basophils # 0.2 K/mcL (0.0-0.2); Basophils % 1.2 %; Eosinophils # 0.1 K/mcL (0.0-0.6); Eosinophils % 0.4 %; Hemoglobin 16.8 g/dL (12.9-16.9); Immature Granulocytes % 5.8 % (0-4); Lymphocytes # 1.2 K/mcL (0.6-4.6); Lymphocytes % 8.6 %; Mean Corpuscular HGB Conc 31.7 g/dL (31.6-35.5); Mean Corpuscular Hemoglobin 30.1 pg (28.0-33.3); Mean Corpuscular Volume 94.8 fL (83.0-100.0); Monocytes # 0.9 K/mcL (0.0-1.3); Monocytes % 6.5 %; Nucleated Red Blood Cells 0.6 /100 WBC (0); Platelet Count 142 K/mcL (140-400); Red Blood Count 5.59 M/mcL (4.19-5.50); Red Cell Distribution Width 15.4 % (11.5-14.5); Segmented Neutrophils % 77.5 %
[2018-05-23 05:16] LABS: Neutrophils # 10.9 K/mcL (1.6-8.9)
[2018-05-23] MEDS: *HR* Enoxaparin 40 MG/0.4 ML SYRINGE SQ SCH (05:18)
[2018-05-23 05:19] LABS: BUN/Creatinine Ratio 15 (6-26); Blood Urea Nitrogen 21 mg/dL (6-20); Calcium 9.2 mg/dL (8.6-10.3); Carbon Dioxide 22 mEq/L (23-29); Chloride 96 mEq/L (98-107); Glucose 78 mg/dL (70-105); Osmolality,Calculated 268 (280-300); Potassium 4.9 mEq/L (3.5-5.1); Sodium 128 mEq/L (136-145); eGFR For Non-African Americans 54 (> 60)
[2018-05-23 05:55] LABS: Platelet Estimate Normal (Normal)
[2018-05-23] MEDS ORDERED: *HR* Morphine Sulfate SR (12 HR) 15 MG TABLET.ER PO SCH (06:00)
[2018-05-23] MEDS: Folic Acid 1 MG TABLET PO SCH (09:45)
[2018-05-23] MEDS: Vitamin B Complex/Vit C/Vit E 1 EACH TABLET PO SCH (09:46)
[2018-05-23] MEDS: Aspirin Enteric Coated 81 MG Tablet PO SCH (09:46)
[2018-05-23] MEDS: Ondansetron 4 MG/2 ML VIAL IVP PRN (09:46)
[2018-05-23] MEDS: amLODIPine 5 MG TABLET PO SCH (09:46)
[2018-05-23] MEDS: Thiamine (B-1) 100 MG TABLET PO SCH (09:46)
[2018-05-23] MEDS ORDERED: Furosemide 40 MG/4 ML VIAL IVP ONE (12:44)
[2018-05-23] MEDS: 0.9 % Sodium Chloride w KCl 20 MEQ/1,000 ML MLS IVC SCH ×2 (14:03→15:24)
--- NOTE | 2018-05-23 17:06 | Oncology Inp Progress Note ---
<Sangeeta Rudolph L - Last Filed: 05/24/18 13:09> Date of Encounter: 05/23/18 Time of Encounter: 17:00 (1) Metastatic cancer Current Visit: Yes Status: Acute Assessment and plan: 1. Radiographic imaging of widespread metastatic disease, including liver metastasis, vertebral metastasis 3 cm lytic lesion. He is fairly asymptomatic from the bone metastases. Also small mediastinal adenopathy and left lower lobe nodule about [address]-guided liver biopsy of the dominant 3.8 cm anteriorly located nodule in the liver, however, patient currently on plavix, last dose given 05/22/2018 around 9 am. Likely will need to wait until Wednesday for liver biopsy, therefore, will consult pulmonology as discussed below. Small cell carcinoma is high in the differential, however, CEA resulted significantly elevated at >850. CA 19-9 pending. Consider GI consult for endoscopy in future. Significantly elevated LDH at around 1400, etiology unclear, maybe secondary to degree of liver disease? Patient reported diploplia earlier this morning, currently resolved. States he cannot have MRI due to piece of metal in his eye although he cannot give details on when/how this happened. CT head without contrast (avoid contrast hit second lex to worsening renal function) Primary may be lung but GI is within differential. Need tissue biopsy for diagnosis and further recommendations. At this time, we will consult pulmonology to assess appropriateness for bronchoscopy with biopsy to obtain tissue. I am unsure how his plavix dosing would affect bronch bx, will discuss with pulm. 2. Previous history of stroke with right hemiparesis 2016. 3. History of alcohol and tobacco abuse 4. Erythrocytosis. Could be hemoconcentration. If necessary may consider phlebotomy. EPO pending. 5. Elevated liver enzymes jaundice. Likely from liver metastasis. Uric acid normal. Viral hepatitis panel and HIV non-reactive. Oncology: Subj Interval history: Mr. Wong is resting comfortably. He began to experience oliguria today and worsening renal function, etiology unclear. He denies nausea, vomiting, bowel changes, dysphagia, odynophagia, chest pain or worsening SOB - Constitutional General appearance: cooperative, no acute distress, no febrile - Head Head exam: Present: atraumatic - ENT ENT exam: Present: mucous membranes moist, normal oropharynx - Respiratory Respiratory exam: Present: decreased breath sounds, CTAB. Absent: respiratory distress - Cardiovascular Cardiovascular exam: Present: RRR, +S1, +S2 - GI/Abdominal GI/Abdominal exam: Present: normal bowel sounds, soft. Absent: tenderness - Extremities Exam Extremities exam: Absent: calf tenderness - Neurological Exam Neurological exam: Present: alert, oriented X3, no focal deficits, strengths equal and symetr throughout - Psychiatric Psychiatric exam: Present: flat affect - Skin Skin exam: Present: dry, intact, normal color, warm Oncology: Obj Data - Labs CBC & Chem 7: 05/24/18 05:35 05/24/18 11:00 Consult Discharge Plan - Plan Referrals: Pilar Hilliard MD [Primary Care Provider] - Inpatient Charges Provider: Dr. Sonal Reveles <Gary Reveles S - Last Filed: 05/24/18 13:36> Date of Encounter: 05/23/18 (1) Concern about cancer without diagnosis Current Visit: Yes Status: Acute Oncology: Obj Data - Labs CBC & Chem 7: 05/24/18 05:35 05/24/18 12:28 - Attending Attestation I examined this patient and my medical decision-making was reviewed with the Advanced Practice Nurse. I agree with the documented findings, disposition and treatment plan as described except to the extent set forth below. 1. Concerning for metastatic carcinoma. Multiple liver metastasis with elevated liver enzymes and alkaline phosphatase. No dilated bile ducts Left lung mass and multiple bone metastasis Elevated LDH of 1400. CEA also elevated at 850. Primary could be lung but did to be determined. He is on Plavix and CT-guided biopsy of the liver cannot be done We will consult pulmonary for possible bronchoscopy and biopsy of the left lower lobe lung lesion. Treatment recommendation after diagnosis MRI brain with and without contrast to complete staging He was transferred to ICU later that day because of hypotension.
[2018-05-23] MEDS ORDERED: Gadolinium Contrast Agent (WT Based) IV PRN (18:14)
[2018-05-23] MEDS: *HR* FentaNYL (PF) 100 MCG/2 ML VIAL IVP PRN (21:40)
[2018-05-23 22:02] LABS: Potassium 6.2 mEq/L (3.5-5.1)
--- NOTE | 2018-05-23 22:19 | Electrocardiograph Report ---
[address] [address] Test Date: 2018-05-20 Pat Name: Eldon Wong Department: EXAM5 Room: 3A11 Gender: M Picture Framer: : [id number] Requested By: Danny Larose Order Number: [id number] Reading MD: Dariel Palmer Measurements Intervals [place] Rate: 134 P: 61 [place]: 119 QRS: 127 QRSD: 90 T: 21 QT: 307 QTc: 459 Interpretive Statements Sinus tachycardia Probable left atrial enlargement Right axis deviation Poor R wave progression Electronically Signed On 05-23-2018 22:17:52 EST by Dariel Palmer
[2018-05-23] MEDS: 0.9 % Sodium Chloride 1,000 ML IVC SCH (22:28)
[2018-05-23] MEDS ORDERED: Calcium Gluconate 2,000 MG in 0.9 % Sodium Chloride 100 ML IVPB ONE (23:35)
[2018-05-23] MEDS ORDERED: Ondansetron 4 MG/2 ML VIAL IVP ONE (23:37)
[2018-05-23] MEDS ORDERED: *HR* Dextrose 50 % in Water (Syg) 50 ML SYRINGE IVP ONE (23:39)
[2018-05-23] MEDS ORDERED: Insulin Human Regular 10 UNIT in 0.9 % Sodium Chloride 10 ML IV ONE (23:44)
[2018-05-23] MEDS ORDERED: 0.9 % Sodium Chloride 1,000 ML IVC SCH (23:45)
[2018-05-24] MEDS ORDERED: 0.9 % Sodium Chloride 1,000 ML IVC ONE (00:30)
--- NOTE | 2018-05-24 00:38 | Internal Med Progress Note ---
Hospitalist Progress Note - Encounter Date of Encounter: 05/23/18 Time of Encounter: 19:00 - Subjective Interval History: SUBJECTIVE: The patient continues to have epigastric pain. He seems to be under better control. He denies nausea and vomiting. He makes only small amounts of urine. We inserted a Beckford catheter. Bladder scan and retroperitoneal ultrasound are basically normal. OBJECTIVE: His blood pressure he is on low side. However his systolic blood pressure is consistently higher than 90. Skin: Free of rash and discoloration. ENMT: Oral/pharyngeal mucosa is normal in appearance. Eyes: Sclera is white. There is no discharge from eyes. Respiratory: Normal breath sounds; no crackles or wheezes. CV: Heart is regular; no gallop or murmur. GI: There is mild tenderness at palpation of the area located below the right ribs, anteriorly. Neuro: There is no focal deficits. ADDITIONAL DATA: CBC shows hemoglobin of 16.8 with a WBC of 14.1 thousand and normal platelet count. BMP shows sodium of 128 and normal potassium. Creatinine is 1.40; 0.62 yesterday. Bladder scan and ultrasound of her kidneys are not showing any significant abnormalities. ASSESSMENT AND PLAN: Metastatic cancer. The patient will have CT-guided biopsy of a prominent liver lesion. He has to be 5 days without Plavix (we put this medication on hold). Oliguria. We will continue IV fluids. Beckford catheter will stay in for monitoring of his urinary output. COPD. Under control. He has good pulse ox on room air. Abnormal liver function tests. Secondary to metastases. Hepatitis panel and testing for HIV is negative. Chronic alcoholism. We will be watching him for withdrawal symptoms. He will get when necessary Ativan. Mild hyponatremia. Should get better with IV normal saline. Hypertension/hyperlipidemia. We will discontinue his Cozaar. We will continue lower dose Norvasc. He is on Lipitor. - Exam Vitals: Temp Pulse Resp BP Pulse Ox 94.4 F L 121 18 91/59 93 05/23/18 21:26 05/23/18 22:37 05/23/18 21:26 05/23/18 22:37 05/23/18 19:25 Exam: xx - Assessment and Plan (1) Metastatic cancer Current Visit: Yes Status: Acute (2) COPD (chronic obstructive pulmonary disease) Current Visit: No Status: Acute (3) Abnormal liver function Current Visit: Yes Status: Acute (4) Alcoholism Current Visit: Yes Status: Chronic (5) HTN (hypertension) Current Visit: Yes Status: Chronic (6) HLD (hyperlipidemia) Current Visit: Yes Status: Acute (7) History of CVA (cerebrovascular accident) Current Visit: Yes Status: Acute - Time Spent with Patient Total time spent is greater than 50% in coordination of care (as documented) at patient's floor/unit and/or counseling patient: Internal Medicine: Result - Labs CBC & Chem 7: 05/23/18 04:47 05/23/18 21:27 Labs: Short CBC 05/23/18 Range/Units 04:47 WBC 14.1 H (4.3-11.1) K/mcL Hgb 16.8 (12.9-16.9) g/dL Hct 53.0 H (37.5-50.1) % Plt Count 142 (140-400) K/mcL Neutrophils # 10.9 H (1.6-8.9) K/mcL BMP 05/23/18 05/23/18 04:47 21:27 Sodium 128 L 129 L Potassium 4.9 6.2 H D Chloride 96 L 97 L Carbon Dioxide 22 L 20 L BUN 21 H 32 H Creatinine 1.40 H 1.91 H Glucose 78 97 Calcium 9.2 9.0 - ABG Interpretation ABG results: PT/INR, D-dimer D-Dimer 48983 ng/mLFEU (0-500) H 05/20/18 17:34 - Impressions Impressions Abdomen/Pelvis CT 05/20/18 20:10 IMPRESSION: Negative for acute pulmonary embolism. Features of widespread metastatic disease involving the chest, abdomen and pelvis, including mediastinal and hilar lymphadenopathy, diffuse pulmonary nodularity, innumerable hepatic lesions, mesenteric lymphadenopathy and lytic skeletal lesions involving L2 and the right ischium. There is no clear primary; however, certainly the superior segment left lower lobe peribronchovascular and infiltrative mass is suspicious for lung primary and small cell carcinoma in particular. This area may be amenable to endobronchial biopsy. Critical results were called by Dr. Eldon Malagon to Ben Renteria on 05/20/2018 at 8:50 p.m. D/ / 05/20/2018 21:07:38 Eldon Malagon / j carlos Interpreting Provider: Eldon Malagon Chest CTA 05/20/18 20:10 IMPRESSION: Negative for acute pulmonary embolism. Features of widespread metastatic disease involving the chest, abdomen and pelvis, including mediastinal and hilar lymphadenopathy, diffuse pulmonary nodularity, innumerable hepatic lesions, mesenteric lymphadenopathy and lytic skeletal lesions involving L2 and the right ischium. There is no clear primary; however, certainly the superior segment left lower lobe peribronchovascular and infiltrative mass is suspicious for lung primary and small cell carcinoma in particular. This area may be amenable to endobronchial biopsy. Critical results were called by Dr. Eldon Malagon to Ben Dexter on 05/20/2018 at 8:50 p.m. D/ / 05/20/2018 21:07:38 Eldon Malagon / j carlos Interpreting Provider: Eldon Malagon Chest X-Ray 05/23/18 04:45 IMPRESSION: Bibasilar atelectasis. Low lung volumes. D/ / Netta Bearden MD / Netta Bearden MD Interpreting Provider: Netta Bearden MD Retroperitoneum Ultrasound 05/23/18 05:28 IMPRESSION: Unremarkable appearance of the kidneys. Bladder not visualized. Heterogeneous appearance of the liver with innumerable hypoechoic nodules, suggestive of metastatic disease. This is better evaluated on the CT from 05/20/2018. D/ / Carloz Warner MD / Carloz Warner MD Interpreting Provider: Carloz Warner MD Consult Discharge Plan - Plan Referrals: Pilar Hilliard MD [Primary Care Provider] - (2) COPD (chronic obstructive pulmonary disease) Qualifiers: COPD type: emphysema Emphysema type: unspecified Qualified Code(s): J43.9 - Emphysema, unspecified (5) HTN (hypertension) Qualifiers: Hypertension type: essential hypertension Qualified Code(s): I10 - Essential (primary) hypertension (6) HLD (hyperlipidemia) Qualifiers: Hyperlipidemia type: unspecified Qualified Code(s): E78.5 - Hyperlipidemia, unspecified
--- NOTE | 2018-05-24 01:24 | Event Note ---
Date of Encounter: 05/24/18 Time of Encounter: 01:18 Patient moved to ICU for concerns of clinical deterioration. I saw and evaluated patient per RN request. Patient has BP 80/50's, worsening renal function, and hyperkalemia. Pt wishes to remain DNR-A/DNI. However, he is agreeable to CVC and pressors if necessary. I asked RN to bolus 1 liter IVF and to increase MIV rate. I then requested transfer to ICU for closer monitoring and possible need for CVC/pressors. Will monitor chemistries closely.
[2018-05-24] MEDS ORDERED: Levofloxacin 750 MG/150 ML 750 MG/150 ML BAG IVPB ONE ×2 (01:43→02:50)
[2018-05-24] MEDS ORDERED: Albumin 25% 25gram/100mL 25 GM/100 ML IV.SOLN IVC STA (01:46)
[2018-05-24 02:25] LABS: Calcium 9.1 mg/dL (8.6-10.3); Potassium 5.6 mEq/L (3.5-5.1)
[2018-05-24] MEDS: 0.9 % Sodium Chloride 1,000 ML IVC SCH (02:54)
[2018-05-24 05:50] LABS: Mean Corpuscular HGB Conc 31.1 g/dL (31.6-35.5); Mean Corpuscular Hemoglobin 29.9 pg (28.0-33.3); Mean Platelet Volume 11.7 fL (9.4-12.4); Nucleated Red Blood Cells 0.6 /100 WBC (0); Platelet Count 117 K/mcL (140-400); Red Blood Count 4.79 M/mcL (4.19-5.50); Red Cell Distribution Width 15.8 % (11.5-14.5)
[2018-05-24 05:57] LABS: Hemoglobin 14.3 g/dL (12.9-16.9)
[2018-05-24] MEDS: *HR* Enoxaparin 40 MG/0.4 ML SYRINGE SQ SCH (06:02)
[2018-05-24 06:10] LABS: Calcium 8.8 mg/dL (8.6-10.3); Potassium 6.1 mEq/L (3.5-5.1)
[2018-05-24 06:13] LABS: Lymphocytes # 4.5 K/mcL (0.6-4.6); Neutrophils # 10.6 K/mcL (1.6-8.9)
[2018-05-24 06:14] LABS: Platelet Estimate Decreased (Normal)
[2018-05-24] MEDS: Folic Acid 1 MG TABLET PO SCH (07:55)
[2018-05-24] MEDS: Thiamine (B-1) 100 MG TABLET PO SCH (07:55)
[2018-05-24] MEDS: Aspirin Enteric Coated 81 MG Tablet PO SCH (07:55)
[2018-05-24] MEDS: Vitamin B Complex/Vit C/Vit E 1 EACH TABLET PO SCH (07:55)
--- NOTE | 2018-05-24 08:12 | Pulmonology Consult Note ---
<Ryley Sheriff S - Last Filed: 05/24/18 14:03> Date of Encounter: 05/24/18 Time of Encounter: 08:11 Assessment and Plan (1) Metastatic cancer Current Visit: Yes Status: Acute Pt with 20lbs weight loss, increasing abd pain/distention, changes in bowel habits and SOB CT abd/pelvis on 05/20 - widespread metastatic disease involving chest, abd and pelvis including mediastinal and hilar LAD, diffuse pulmonary nodularity, innumerable heatic lesions, mesenteric LAD - lytic skeletal lesions - LLL peribronchovascular and infiltrative mass possible primary is small cell carcinoma Pt displays no stigmata of paraneoplastic syndrome, however, he does have hyponatremia which may be due to underlying SCLC vs beer's potomania - pt denies bone pain - calcium is WNL - sodium has remained in the low 130's , however, he appears to be chronically hyponatremic CEA level >850 Abnormal liver fxn, likely due to liver mets and contributing to jaundice/scleral icterus Last dose of plavix given at 05/23 at 0900 - will benefit from liver bx on Wednesday after plavix washout Plan: - heme-onc consulted, appreciate recommendations - plan for EBUS with bx today with Dr. Gallardo risks and benefits explained to the pt, he has signed consent - plavix currently held, pt needs liver bx to determine primary source of cancer - CT head pending, r/o brain mets (2) Hyperkalemia Current Visit: Yes Status: Acute Potassium of 6.1 this morning Patient denies any active chest pain or palpitations - telemetry monitoring showed no stigmata of hyperkalemic changes Plan: - 40mg IVP lasix now - repeat potassium 2 hrs after diuretic given - continue to closely monitor the pt for arrhythmias (3) Sepsis Current Visit: No Status: Acute Pt meets criteria for sepsis WBC count 16 Lactic acid 5.6, repeat this morning 3.3 HR 101, RR 20 BP has been stable over night Urine cx negative Still no signs of infxn present, likely due to progression of underlying malignancy Plan: - blood cx pending - continue levaquin as per primary Qualifiers: Sepsis type: sepsis due to unspecified organism Qualified Code(s): A41.9 - Sepsis, unspecified organism (4) COPD (chronic obstructive pulmonary disease) Current Visit: Yes Status: Acute NOT in acute exacerbation. Qualifiers: COPD type: emphysema Emphysema type: unspecified Qualified Code(s): J43.9 - Emphysema, unspecified (5) Tobacco abuse Current Visit: Yes Status: Acute Chronic pipe smoker - counseling given (6) Severe protein-calorie malnutrition Current Visit: Yes Status: Acute Severe Protein Calorie Malnutrition r/t suspected Met's Cancer, has 20# wt loss X1 month and <75% of EEN > 7 days. History of Present Illness Consult date: 05/23/18 Requesting physician: Sangeeta Rudolph Reason for consult: lung mass Chief complaint: "constipation" History of present illness: Mr. Wong is a 52yo male with PMH of COPD, CVA with right sided weakness, alcoholism and HTN. He presented to [facility] on 05/21 with the cc of constipation and abdominal pain. He had widespread abd pain and hadn't had a bowel movement in 2 wks. He states that it was all over, and he felt like his belly was very full. He rated it as a 10/10 and states that it was crampy abd pain. He also had SOB associated with his symptoms. He has been having increasing SOB from baseline. states that he was getting SOB walking from couch to the bathroom. The pt has also had about 20 lbs of weight loss in the last few weeks. He denies any fevers/chills/night sweats. Denies any active chest pain. On admission, the pt had CTA which showed widespread mets involving the chest, liver and bone. He was not aware of his cancer until Wednesday. He is a shelter pipe smoker and he has never had routine cancer screenings, such as colonoscopy. 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 He has dogs at home. Denies any exposure to birds/bats or caves. Pulmonology consulted for LLL mass amendable for EBUS with bx to differentiate if primary cancer is GI vs SSLC. Past Med Surg Social Fam HX - Past Medical History Medical history: COPD, hypertension, other Additional medical history: bowel obstruction Psychiatric history: no psych history - Past Surgical History Surgical History: appendectomy, cholecystectomy, colectomy, herniorrhaphy, other Additional surgical history: colon resection, neck surgery - Social History Smoking Status: Current every day smoker Packs per day: pipe Smokeless Tobacco Status: No Alcohol use: occasionally Drug use: none - Family History Mother History Unknown: Yes Medications and Allergies RX: No Known Home Drugs 05/23/18 [History] Allergy/AdvReac Type Severity Reaction Status Date / Time Penicillins [PCN] Allergy Anaphylaxis Verified 05/20/18 16:15 All Systems: The remainder of the systems were reviewed and are negative - Constitutional Constitutional: weight loss, no chills, no fever(s), no night sweats - Cardiovascular Cardiovascular: dyspnea, dyspnea on exertion, no chest pain, no chest pain at rest, no chest pain with activity, no palpitations - Respiratory Respiratory: cough, dyspnea on exertion, pain on inspirtation - Gastrointestinal Gastrointestinal: abdominal pain, vomiting (constipation), no diarrhea, no melena, no nausea - Neurological Neurological: sensory deficit, no dizziness, no headache(s), no tingling - Hematologic/Lymphatic Hematologic/Lymphatic: no easy bleeding, no easy bruising Physical Examination Vital Signs: Vital Signs, Last 4 Hours Temp Pulse Resp BP Pulse Ox 05/24/18 07:39 96.3 F L 05/24/18 06:00 101 20 113/77 90 05/24/18 05:00 102 14 108/75 90 General appearance: lethargic Eyes: icteric Mallampati (class): 3 Effort: mildly labored Inspection: normal Auscultation: bilateral: diminished breath sounds Cardiovascular: other (tacycardic) Gastrointestinal: hypoactive bowel sounds, tender, other ((+) distention) Integumentary: normal Extremities: no clubbing Musculoskeletal: other (missing fingers on left hand) normal mental status, non-focal exam anxious Results - Laboratory Findings CBC and BMP: 05/24/18 05:35 05/24/18 12:28 PT/INR, D-dimer D-Dimer [id number] ng/mLFEU (0-500) H 05/20/18 17:34 Abnormal lab findings: Abnormal lab results WBC 16.0 K/mcL (4.3-11.1) H 05/24/18 05:35 MCHC 31.1 g/dL (31.6-35.5) L 05/24/18 05:35 RDW 15.8 % (11.5-14.5) H 05/24/18 05:35 Plt Count 117 K/mcL (140-400) L 05/24/18 05:35 Immature Gran % 5.8 % (0-4) H 05/23/18 04:47 Neutrophils # 10.6 K/mcL (1.6-8.9) H 05/24/18 05:35 Nucleated RBCs/100 WBC 0.6 /100 WBC (0) H 05/24/18 05:35 Platelet Estimate Decreased (Normal) L 05/24/18 05:35 D-Dimer 36129 ng/mLFEU (0-500) H 05/20/18 17:34 Sodium 130 mEq/L (136-145) L 05/24/18 05:35 Potassium 6.1 mEq/L (3.5-5.1) H 05/24/18 05:35 Carbon Dioxide 20 mEq/L (23-29) L 05/24/18 05:35 BUN 32 mg/dL (6-20) H 05/24/18 05:35 Creatinine 2.02 mg/dL (0.70-1.30) H 05/24/18 05:35 Est GFR ( Amer) 43 (> 60) L 05/24/18 05:35 Est GFR (Non-Af Amer) 35 (> 60) L 05/24/18 05:35 Glucose 142 mg/dL (70-105) H 05/24/18 05:35 POC Glucose 114 mg/dL (70-99) H 05/24/18 05:45 Calculated Osmolality 279 (280-300) L 05/24/18 05:35 Lactic Acid 3.3 mmol/L (0.5-2.2) H 05/24/18 05:35 Total Bilirubin 3.9 mg/dL (0.3-1.0) H 05/22/18 04:39 Direct Bilirubin 2.4 mg/dL (0.0-0.2) H 05/22/18 04:39 Indirect Bilirubin 1.5 mg/dL (0.0-1.2) H 05/22/18 04:39 AST 258 Units/L (13-39) H 05/22/18 04:39 ALT 135 Units/L (7-52) H 05/22/18 04:39 Alkaline Phosphatase 481 Units/L (34-104) H 05/22/18 04:39 Lactate Dehydrogenase > 3600 Units/L (140-271) H 05/24/18 01:50 Serum Total Protein 6.1 g/dL (6.4-8.9) L 05/22/18 04:39 Albumin 3.0 g/dL (3.5-5.7) L 05/22/18 04:39 Albumin/Globulin Ratio 1.0 (1.1-2.2) L 05/22/18 04:39 Lipase 87 Units/L (11-82) H 05/20/18 17:34 Carcinoembryonic Ag > 850.0 ng/mL (Less than 5.0) H 05/21/18 14:55 Ur Specific [place] 1.026 (1.010-1.025) H 05/20/18 18:35 Urine Ketones 15 mg/dL (Negative) H 05/20/18 18:35 Urine Nitrite Positive (Negative) A 05/20/18 18:35 Urine Bilirubin Large (Negative) H 05/20/18 18:35 Urine Urobilinogen 2.0 mg/dL (Normal) H 05/20/18 18:35 Ur Leukocyte Esterase Small (Negative) H 05/20/18 18:35 Urine Bacteria Moderate per hpf (None-Few) H 05/20/18 18:35 Ur Culture Indicated? YES (NO) A 05/20/18 18:35 - Microbiology Findings Microbiology Findings: Microbiology, Last 48 Hours 05/20/18 18:35 Urine Culture - Final Urine,Clean Catch No growth. - Clinical Findings Intake & Output: Intake & Output 05/23/18 05/24/18 05/24/18 23:59 07:59 15:59 Intake Total 0 / 0 2230.1 / 2230.1 Output Total 50 / 50 75 / 75 Balance -50 / -50 2155.1 / 2155.1 Weight 84.5 kg Consult Discharge Plan - Plan Referrals: Pilar Hilliard MD [Primary Care Provider] - <Kathy Arias - Last Filed: 05/24/18 15:58> Date of Encounter: 05/24/18 All Systems: The remainder of the systems were reviewed and are negative Physical Examination Vital Signs: Vital Signs, Last 4 Hours Temp Pulse Resp BP Pulse Ox 05/24/18 15:00 103 10 95/62 94 05/24/18 14:45 101 10 96/63 94 05/24/18 14:30 103 11 98/62 92 05/24/18 14:15 105 12 95/64 93 05/24/18 14:03 97.1 F L 106 20 115/61 94 Results - Laboratory Findings CBC and BMP: 05/24/18 05:35 05/24/18 14:17 PT/INR, D-dimer PT 22.9 Seconds (9.4-12.1) H 05/24/18 07:49 D-Dimer 73498 ng/mLFEU (0-500) H 05/20/18 17:34 Abnormal lab findings: Abnormal lab results WBC 16.0 K/mcL (4.3-11.1) H 05/24/18 05:35 MCHC 31.1 g/dL (31.6-35.5) L 05/24/18 05:35 RDW 15.8 % (11.5-14.5) H 05/24/18 05:35 Plt Count 117 K/mcL (140-400) L 05/24/18 05:35 Immature Gran % 5.8 % (0-4) H 05/23/18 04:47 Neutrophils # 10.6 K/mcL (1.6-8.9) H 05/24/18 05:35 Nucleated RBCs/100 WBC 0.6 /100 WBC (0) H 05/24/18 05:35 Platelet Estimate Decreased (Normal) L 05/24/18 05:35 PT 22.9 Seconds (9.4-12.1) H 05/24/18 07:49 D-Dimer 57232 ng/mLFEU (0-500) H 05/20/18 17:34 VBG pH 7.16 pH Units (7.32-7.42) L* 05/24/18 13:31 VBG pCO2 55 mmHg (41-51) H 05/24/18 13:31 VBG pO2 57 mmHg (25-50) H 05/24/18 13:31 VBG HCO3 19 mEq/L (21-27) L 05/24/18 13:31 Venous Sodium 134 mEq/L (135-145) L 05/24/18 13:31 Sodium 129 mEq/L (136-145) L 05/24/18 12:28 Venous Potassium 5.7 mEq/L (3.5-5.5) H 05/24/18 13:31 Potassium 5.7 mEq/L (3.5-5.1) H 05/24/18 14:17 Carbon Dioxide 19 mEq/L (23-29) L 05/24/18 12:28 BUN 37 mg/dL (6-20) H 05/24/18 12:28 Creatinine 2.63 mg/dL (0.70-1.30) H 05/24/18 12:28 Est GFR ( Amer) 31 (> 60) L 05/24/18 12:28 Est GFR (Non-Af Amer) 26 (> 60) L 05/24/18 12:28 Whole Bld Glucose 237 mg/dl (65-95) H 05/24/18 13:31 POC Glucose 114 mg/dL (70-99) H 05/24/18 05:45 Calculated Osmolality 276 (280-300) L 05/24/18 12:28 Lactic Acid 3.3 mmol/L (0.5-2.2) H 05/24/18 05:35 Total Bilirubin 3.9 mg/dL (0.3-1.0) H 05/22/18 04:39 Direct Bilirubin 2.4 mg/dL (0.0-0.2) H 05/22/18 04:39 Indirect Bilirubin 1.5 mg/dL (0.0-1.2) H 05/22/18 04:39 AST 258 Units/L (13-39) H 05/22/18 04:39 ALT 135 Units/L (7-52) H 05/22/18 04:39 Alkaline Phosphatase 481 Units/L (34-104) H 05/22/18 04:39 Lactate Dehydrogenase > 3600 Units/L (140-271) H 05/24/18 01:50 Serum Total Protein 6.1 g/dL (6.4-8.9) L 05/22/18 04:39 Albumin 3.0 g/dL (3.5-5.7) L 05/22/18 04:39 Albumin/Globulin Ratio 1.0 (1.1-2.2) L 05/22/18 04:39 Lipase 87 Units/L (11-82) H 05/20/18 17:34 Carcinoembryonic Ag > 850.0 ng/mL (Less than 5.0) H 05/21/18 14:55 Ur Specific [place] 1.026 (1.010-1.025) H 05/20/18 18:35 Urine Ketones 15 mg/dL (Negative) H 05/20/18 18:35 Urine Nitrite Positive (Negative) A 05/20/18 18:35 Urine Bilirubin Large (Negative) H 05/20/18 18:35 Urine Urobilinogen 2.0 mg/dL (Normal) H 05/20/18 18:35 Ur Leukocyte Esterase Small (Negative) H 05/20/18 18:35 Urine Bacteria Moderate per hpf (None-Few) H 05/20/18 18:35 Ur Culture Indicated? YES (NO) A 05/20/18 18:35 - Clinical Findings Intake & Output: Intake & Output 05/23/18 05/24/18 05/24/18 23:59 07:59 15:59 Intake Total 0 / 0 3380.1 / 3380.1 350 / 350 Output Total 50 / 50 75 / 75 Balance -50 / -50 3305.1 / 3305.1 350 / 350 Weight 84.5 kg - Attending Attestation The note was wrongly assigned to me i didnt see the patient . <Pepe Gallardo - Last Filed: 05/25/18 07:55> Date of Encounter: 05/25/18 Time of Encounter: 07:30 History of Present Illness Consult date: 05/24/18 All Systems: The remainder of the systems were reviewed and are negative Physical Examination Vital Signs: Vital Signs, Last 4 Hours Temp Pulse Resp BP Pulse Ox 05/24/18 07:39 96.3 F L 05/24/18 06:00 101 20 113/77 90 Results - Laboratory Findings CBC and BMP: 05/25/18 03:50 05/25/18 03:50 PT/INR, D-dimer PT 22.9 Seconds (9.4-12.1) H 05/24/18 07:49 D-Dimer 89288 ng/mLFEU (0-500) H 05/20/18 17:34 Abnormal lab findings: Abnormal lab results WBC 16.0 K/mcL (4.3-11.1) H 05/24/18 05:35 MCHC 31.1 g/dL (31.6-35.5) L 05/24/18 05:35 RDW 15.8 % (11.5-14.5) H 05/24/18 05:35 Plt Count 117 K/mcL (140-400) L 05/24/18 05:35 Immature Gran % 5.8 % (0-4) H 05/23/18 04:47 Neutrophils # 10.6 K/mcL (1.6-8.9) H 05/24/18 05:35 Nucleated RBCs/100 WBC 0.6 /100 WBC (0) H 05/24/18 05:35 Platelet Estimate Decreased (Normal) L 05/24/18 05:35 PT 22.9 Seconds (9.4-12.1) H 05/24/18 07:49 D-Dimer 16785 ng/mLFEU (0-500) H 05/20/18 17:34 Sodium 130 mEq/L (136-145) L 05/24/18 05:35 Potassium 6.1 mEq/L (3.5-5.1) H 05/24/18 05:35 Carbon Dioxide 20 mEq/L (23-29) L 05/24/18 05:35 BUN 32 mg/dL (6-20) H 05/24/18 05:35 Creatinine 2.02 mg/dL (0.70-1.30) H 05/24/18 05:35 Est GFR ( Amer) 43 (> 60) L 05/24/18 05:35 Est GFR (Non-Af Amer) 35 (> 60) L 05/24/18 05:35 Glucose 142 mg/dL (70-105) H 05/24/18 05:35 POC Glucose 114 mg/dL (70-99) H 05/24/18 05:45 Calculated Osmolality 279 (280-300) L 05/24/18 05:35 Lactic Acid 3.3 mmol/L (0.5-2.2) H 05/24/18 05:35 Total Bilirubin 3.9 mg/dL (0.3-1.0) H 05/22/18 04:39 Direct Bilirubin 2.4 mg/dL (0.0-0.2) H 05/22/18 04:39 Indirect Bilirubin 1.5 mg/dL (0.0-1.2) H 05/22/18 04:39 AST 258 Units/L (13-39) H 05/22/18 04:39 ALT 135 Units/L (7-52) H 05/22/18 04:39 Alkaline Phosphatase 481 Units/L (34-104) H 05/22/18 04:39 Lactate Dehydrogenase > 3600 Units/L (140-271) H 05/24/18 01:50 Serum Total Protein 6.1 g/dL (6.4-8.9) L 05/22/18 04:39 Albumin 3.0 g/dL (3.5-5.7) L 05/22/18 04:39 Albumin/Globulin Ratio 1.0 (1.1-2.2) L 05/22/18 04:39 Lipase 87 Units/L (11-82) H 05/20/18 17:34 Carcinoembryonic Ag > 850.0 ng/mL (Less than 5.0) H 05/21/18 14:55 Ur Specific [place] 1.026 (1.010-1.025) H 05/20/18 18:35 Urine Ketones 15 mg/dL (Negative) H 05/20/18 18:35 Urine Nitrite Positive (Negative) A 05/20/18 18:35 Urine Bilirubin Large (Negative) H 05/20/18 18:35 Urine Urobilinogen 2.0 mg/dL (Normal) H 05/20/18 18:35 Ur Leukocyte Esterase Small (Negative) H 05/20/18 18:35 Urine Bacteria Moderate per hpf (None-Few) H 05/20/18 18:35 Ur Culture Indicated? YES (NO) A 05/20/18 18:35 - Microbiology Findings Microbiology Findings: Microbiology, Last 48 Hours 05/20/18 18:35 Urine Culture - Final Urine,Clean Catch No growth. - Clinical Findings Intake & Output: Intake & Output 05/23/18 05/24/18 05/24/18 23:59 07:59 15:59 Intake Total 0 / 0 2230.1 / 2230.1 Output Total 50 / 50 75 / 75 Balance -50 / -50 2155.1 / 2155.1 Weight 84.5 kg - Attending Attestation I examined this patient and my medical decision-making was reviewed with the Resident Physician. I agree with the documented findings, disposition and treatment plan as described except to the extent set forth below. Patient seen and examined. Labs, radiology, chart personally reviewed. 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 I have reviewed CT chest personally and discussed with the oncology team and I have explained to the patient that we could do a bronchoscopy with EBUS and possibly would have a diagnosis. Patient understand and agreed. I have discussed with the anesthesiologist and plantar bronchoscopy today. A bronchoscopy is recommended. The procedure , risks, benefits, complications, and expected outcomes have been reviewed. Benefits of diagnosis, as well as risks to include bleeding, infection, pneumothorax which may require surgical intervention, and in a small population. The patient is aware that sometimes test is nondiagnostic. Discussed with patient and agrees to proceed. Cardiovascular: stable GI: Nutrition per dietary and GI prophylaxis per routine. Patient with severe protein calorie malnutrition. Heme: DVT prophylaxis per routine and oncology is following. ID: Continue antibiotics and plan to de-escalation Renal: Patient with hyperkalemia which was treated before the bronchoscopy and I suspect combination with acute renal failure versus tumor lysis syndrome is most likely and patient is not interested in any aggressive treatment such as hemodialysis only symptomatic.
[2018-05-24] MEDS ORDERED: Furosemide 40 MG/4 ML VIAL IVP ONE ×2 (08:26→11:36)
[2018-05-24 08:59] LABS: Prothrombin Time 22.9 Seconds (9.4-12.1)
[2018-05-24] MEDS: amLODIPine 5 MG TABLET PO SCH (09:02)
[2018-05-24] MEDS ORDERED: Insulin Human Regular 10 UNIT in 0.9 % Sodium Chloride 10 ML IV ONE ×2 (11:36→21:57)
[2018-05-24] MEDS ORDERED: *HR* Dextrose 50 % in Water (Syg) 50 ML SYRINGE IVP ONE ×2 (11:36→21:56)
--- NOTE | 2018-05-24 11:50 | Anesthesia Evaluation PreOp ---
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: CVA (residual right weakness) Other Medical History: Renal (BUN/Cr=32/2.02), GERD, Other (metastatic CA, hyperkalemia--K=6.4, S/P lasix IV) Anesthesia History: Past Anesthesia, Problems (HTN post-op) Alcohol Use: occasionally (H/O EtOH abuse) Drug use: none Medications and Allergies No Known Home Drugs 05/23/18 [History] Allergy/AdvReac Type Severity Reaction Status Date / Time Penicillins [PCN] Allergy Anaphylaxis Verified 05/20/18 16:15 - Meds/Allergy Pre-op Review Medications Reviewed: Yes Allergies Reviewed: Yes Beta Blockers on Current Med List: No Anesthesia Results - Labs 05/24/18 05:35 05/24/18 11:00 - Imaging EKG: report reviewed (05/20/2018 Sinus tachycardia Probable left atrial enl argement Right axis deviation Poor R wave progression) Additional studies: 02/05/2015 Echo Impressions: LVEF 55-60%. No evidence of pulmonary hypertension. No significant valvular dysfunction. Abdomen/Pelvis CT 05/20/18 20:10 IMPRESSION: Negative for acute pulmonary embolism. Features of widespread metastatic disease involving the chest, abdomen and pelvis, including mediastinal and hilar lymphadenopathy, diffuse pulmonary nodularity, innumerable hepatic lesions, mesenteric lymphadenopathy and lytic skeletal lesions involving L2 and the right ischium. There is no clear primary; however, certainly the superior segment left lower lobe peribronchovascular and infiltrative mass is suspicious for lung primary and small cell carcinoma in particular. This area may be amenable to endobronchial biopsy. Critical results were called by Dr. Eldon Malagon to Ben Renteria on 05/20/2018 at 8:50 p.m. D/ / 05/20/2018 21:07:38 Eldon Malagon / j carlos Interpreting Provider: Eldon Malagon Chest CTA 05/20/18 20:10 IMPRESSION: Negative for acute pulmonary embolism. Features of widespread metastatic disease involving the chest, abdomen and pelvis, including mediastinal and hilar lymphadenopathy, diffuse pulmonary nodularity, innumerable hepatic lesions, mesenteric lymphadenopathy and lytic skeletal lesions involving L2 and the right ischium. There is no clear primary; however, certainly the superior segment left lower lobe peribronchovascular and infiltrative mass is suspicious for lung primary and small cell carcinoma in particular. This area may be amenable to endobronchial biopsy. Critical results were called by Dr. Eldon Malagon to Benneftaly Renteria on 05/20/2018 at 8:50 p.m. 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
[2018-05-24] MEDS ORDERED: *HR* Propofol 200 MG/20 ML VIAL IVP ONE (12:02)
[2018-05-24] MEDS ORDERED: Lidocaine -MPF 2% 2 ML VIAL ONE (12:02)
[2018-05-24] MEDS ORDERED: Dexamethasone 4 MG/ML VIAL ONE (12:02)
[2018-05-24] MEDS ORDERED: *HR* Succinylcholine 200 MG/10 ML VIAL IVP ONE (12:02)
[2018-05-24] MEDS ORDERED: Ondansetron 4 MG/2 ML VIAL ONE ×2 (12:02→12:30)
[2018-05-24] MEDS ORDERED: Albuterol 2.5 MG/3 ML NEBULIZER ONE (12:03)
[2018-05-24] MEDS ORDERED: Lidocaine -MPF 4% 5 ML AMPUL ONE (12:10)
[2018-05-24] MEDS ORDERED: Propofol 500 MG/50 ML INFUS..BTL ONE (12:11)
[2018-05-24] MEDS ORDERED: *HR* Rocuronium Bromide 50 MG/5 ML VIAL ONE (12:14)
[2018-05-24] MEDS ORDERED: *HR* PHENYLEPHRINE 1,000 MCG/10 ML SYRINGE IVP ONE (12:15)
[2018-05-24] MEDS ORDERED: Insulin Human Regular 10 UNIT in 0.9 % Sodium Chloride 10 ML IV STA (12:17)
[2018-05-24] MEDS ORDERED: SUGAMMADEX SODIUM 500 MG/5 ML VIAL IV ONE (12:18)
[2018-05-24] MEDS ORDERED: *HR* Dextrose 50 % in Water (Syg) 50 ML SYRINGE ONE (12:38)
[2018-05-24 13:11] LABS: Calcium 8.6 mg/dL (8.6-10.3); Potassium 6.4 mEq/L (3.5-5.1)
[2018-05-24 13:36] LABS: VBG Base Excess -10 mEq/L; VBG Chloride 103 mEq/L (98-107); VBG Glucose 237 mg/dl (65-95); VBG HCO3 19 mEq/L (21-27); VBG Ionized Calcium 1.15 mmol/L (1.15-1.35); VBG Oxygen Saturation 80 %; VBG PCO2 55 mmHg (41-51); VBG PH 7.16 pH Units (7.32-7.42); VBG PO2 57 mmHg (25-50); VBG Total CO2 21 mEq/L
[2018-05-24] MEDS ORDERED: Sodium Bicarbonate 50 MEQ in 0.45 % Sodium Chloride 1,000 ML IVC SCH (14:15)
[2018-05-24] MEDS: D5% in 0.9% NACL 1,000 ML IVC SCH (14:56)
--- NOTE | 2018-05-24 17:44 | Internal Med Progress Note ---
Hospitalist Progress Note - Encounter Date of Encounter: 05/24/18 Time of Encounter: 17:41 - Subjective Interval History: Mr. Wong is a 52 year old male presented to ER for abdominal pain. Past medical history is significant for hypertension, COPD, history of CVA with right-sided residual weakness, alcoholism. Patient has abdominal pain on the upper part of abdominal for several weeks. Mild nausea, no vomiting. Patient complaining constipation for 4-5 days. No fever, no chills. Denies night sweating. Patient has body weight loss from 180 lbs to 165 lbs in last 2 weeks. Patient has tachycardia in the emergency room, which improved after IV fluid 2L. CTA chest and abdomen shows diffused metastasis disease involving in chest and liver and bone. Patient was admitted for further management. patient had bronchoscopy with Biopsy, tolerated procedure, watch ON in ICU patient is doing ok, he said he has no BM for 1 weel, b/l leg swelling mild SOB with scant wheezing - Exam Vitals: Temp Pulse Resp BP Pulse Ox 97.1 F L 101 10 112/77 95 05/24/18 14:03 05/24/18 16:00 05/24/18 16:00 05/24/18 16:00 05/24/18 16:00 Exam: CONSTITUTIONAL: patient appears as an age appropriate male in no acute distress. EYES Clear sclerae, bilateral pupils are equal, reactive to light. EMOI. RESPIRATORY: No accessory muscle use, bilateral wheezing, no crackles/rales. CARDIOVASCULAR: Regular heart rate, normal S1 and S2, no murmurs GASTROINTESTINAL: bowel sounds present, soft, no tenderness. MUSCULOSKELETAL: Joints in normal range of motion, no clubbing, +++ edema, no cyanosis. Bilateral peripheral pulses 2+. NEUROLOGIC: CN II to XII are grossly intact, no focal neurological deficit. DVT Prophylaxis: SCD - Summary of Assessment and Plan Summary of Assessment and Plan: Mr. Wong is a 52 year old male presented to ER for abdominal pain. Past medical history is significant for hypertension, COPD, history of CVA with right-sided residual weakness, alcoholism. Patient has abdominal pain on the upper part of abdominal for several weeks. Mild nausea, no vomiting. Patient complaining constipation for 4-5 days. No fever, no chills. Denies night sweating. Patient has body weight loss from 180 lbs to 165 lbs in last 2 weeks. Patient has tachycardia in the emergency room, which improved after IV fluid 2L. CTA chest and abdomen shows diffused metastasis disease involving in chest and liver and bone. Patient was admitted for further management. patient had bronchoscopy with Biopsy, tolerated procedure, watch ON in ICU patient is doing ok, he said he has no BM for 1 weel, b/l leg swelling mild SOB with scant wheezing (1) Metastatic cancer (liver, bones), possible small cell lung cancer per verbal path report Current Visit: Yes Status: Acute Radiographic imaging of widespread metastatic disease, including liver metastasis, vertebral metastasis 3 cm lytic lesion. s/p bronchoscopyic biosy today Last dose of plavix given at 05/23 at 0900 (2) Hyperkalemia anf hyponatremia, hypotension and ARF Current Visit: Yes Status: Acute will check cortisol, concerning ,for adrenal insufficiency (3) Sepsis with WBC 16K, HR>90 Current Visit: No Status: Acute Urine cx negative - continue levaquin as per primary Qualifiers: Sepsis type: sepsis due to unspecified organism Qualified Code(s): A41.9 - Sepsis, unspecified organism (4) COPD (chronic obstructive pulmonary disease) Current Visit: Yes Status: Acute NOT in acute exacerbation. Qualifiers: COPD type: emphysema Emphysema type: unspecified Qualified Code(s): J43.9 - Emphysema, unspecified (5) Tobacco abuse, he declinced nicotine patch (6) Severe protein-calorie malnutrition Current Visit: Yes Status: Acute Severe Protein Calorie Malnutrition r/t suspected Met's Cancer, has 20# wt loss X1 month and <75% of EEN > 7 days. (7) Elevated d-dimer with B/L leg swelling, check TTE Current Visit: Yes Status: Acute Assessment and plan: CTA shows no PE. Possibly due to progressive cancer. Doppler venous are ne gative for DVT (8) ARF, on IVF Current Visit: Yes Status: Acute Assessment and plan: Management as abov (9) Alcoholism Current Visit: Yes Status: Acute Assessment and plan: Drink 3-15 beers daily. Stopped drinking for about 2 weeks because of abdominal pain. - No signs of alcohol withdrawal at this point - Place patient on CIWA protocol (10) Constipation Current Visit: Yes Status: Acute Assessment and plan: Place patient on docusate 100 mg twice a day. Give 1 dose of lactulose for constipation. Qualifiers: (12) History of CVA (cerebrovascular accident) Current Visit: Yes Status: Acute Assessment and plan: Continue home medication Plavix and aspirin and statin. - Time Spent with Patient Total time spent is greater than 50% in coordination of care (as documented) at patient's floor/unit and/or counseling patient: 25 - 35 minutes Internal Medicine: Result - Labs CBC & Chem 7: 05/24/18 05:35 05/24/18 14:17 Labs: Short CBC 05/24/18 Range/Units 05:35 WBC 16.0 H (4.3-11.1) K/mcL Hgb 14.3 D (12.9-16.9) g/dL Hct 46.0 (37.5-50.1) % Plt Count 117 L (140-400) K/mcL Neutrophils # 10.6 H (1.6-8.9) K/mcL BMP 05/23/18 05/24/18 05/24/18 21:27 01:50 05:35 Sodium 129 L 128 L 130 L Potassium 6.2 H D 5.6 H 6.1 H Chloride 97 L 100 101 Carbon Dioxide 20 L 17 L 20 L BUN 32 H 34 H 32 H Creatinine 1.91 H 2.17 H 2.02 H Glucose 97 163 H 142 H Calcium 9.0 9.1 8.8 05/24/18 05/24/18 05/24/18 11:00 12:28 14:17 Sodium 129 L Potassium 6.4 H 6.4 H 5.7 H Chloride 101 Carbon Dioxide 19 L BUN 37 H Creatinine 2.63 H Glucose 94 Calcium 8.6 - ABG Interpretation ABG results: PT/INR, D-dimer PT 22.9 Seconds (9.4-12.1) H 05/24/18 07:49 D-Dimer 46566 ng/mLFEU (0-500) H 05/20/18 17:34 - Impressions Impressions Abdomen/Pelvis/Transvag US 05/24/18 10:28 IMPRESSION: No significant ascites to safely perform paracentesis D/ / Ankit Gresham MD / Ankit Gresham MD Interpreting Provider: Ankit Gresham MD Head CT 05/24/18 15:30 IMPRESSION: 1. No acute intracranial abnormality. 2. Large areas of encephalomalacia are noted in the left cerebral hemisphere are stable, with new areas of encephalomalacia in the left basal ganglia. 3. No CT findings to suggest metastatic disease intracranially. D/ / 05/24/2018 16:49:00 Nathan Latif MD / peggy Interpreting Provider: Nathan Latif MD Consult Discharge Plan - Plan Referrals: Pilar Hilliard MD [Primary Care Provider] -
[2018-05-24 20:08] LABS: ABG Base Excess -8 mEq/L (-2 to 3); ABG HCO3 19 mEq/L (21-27); ABG Oxygen Saturation 89 % (95-98); ABG PCO2 47 mmHg (35-45); ABG PH 7.23 pH Units (7.32-7.45); ABG PO2 67 mmHg (85-104); ABG TCO2 21 mEq/L (20-26)
[2018-05-24 20:29] LABS: Calcium 8.3 mg/dL (8.6-10.3); Potassium 6.7 mEq/L (3.5-5.1)
[2018-05-25] MEDS: D5% in 0.9% NACL 1,000 ML IVC SCH (03:41)
[2018-05-25 04:13] LABS: Hematocrit 43.8 % (37.5-50.1); Hemoglobin 13.6 g/dL (12.9-16.9); Mean Corpuscular HGB Conc 31.1 g/dL (31.6-35.5); Mean Corpuscular Volume 96.5 fL (83.0-100.0); Mean Platelet Volume 11.1 fL (9.4-12.4); Monocytes # 1.4 K/mcL (0.0-1.3); Nucleated Red Blood Cells 1.7 /100 WBC (0); Platelet Count 107 K/mcL (140-400); Red Blood Count 4.54 M/mcL (4.19-5.50); Red Cell Distribution Width 16.4 % (11.5-14.5)
[2018-05-25 04:49] LABS: Alanine Aminotransferase > 500 Units/L (7-52); Albumin/Globulin Ratio 1.3 (1.1-2.2); Alkaline Phosphatase 1292 Units/L (34-104); Aspartate Amino Transferase > 3000 Units/L (13-39); BUN/Creatinine Ratio 14 (6-26); Bilirubin,Direct 6.6 mg/dL (0.0-0.2); Bilirubin,Indirect 3.7 mg/dL (0.0-1.2); Bilirubin,Total 10.3 mg/dL (0.3-1.0); Blood Urea Nitrogen 42 mg/dL (6-20); Calcium 7.9 mg/dL (8.6-10.3); Carbon Dioxide 22 mEq/L (23-29); Chloride 102 mEq/L (98-107); Globulin 2.3 g/dL (2.4-3.5); Glucose 198 mg/dL (70-105); Magnesium 2.9 mg/dL (1.6-2.6); Osmolality,Calculated 286 (280-300); Potassium 6.5 mEq/L (3.5-5.1); Sodium 130 mEq/L (136-145); Total Protein 5.3 g/dL (6.4-8.9); eGFR For Non-African Americans 22 (> 60)
[2018-05-25 04:53] LABS: VBG HCO3 21 mEq/L (21-27); VBG PCO2 59 mmHg (41-51); VBG PH 7.15 pH Units (7.32-7.42); VBG PO2 47 mmHg (25-50)
[2018-05-25 05:28] LABS: Lymphocytes # 1.7 K/mcL (0.6-4.6); Neutrophils # 13.7 K/mcL (1.6-8.9); Platelet Estimate Decreased (Normal)
[2018-05-25] MEDS ORDERED: Insulin Human Regular 10 UNIT in 0.9 % Sodium Chloride 10 ML IV ONE (05:28)
[2018-05-25] MEDS ORDERED: *HR* Dextrose 50 % in Water (Syg) 50 ML SYRINGE IVP ONE (05:29)
[2018-05-25] MEDS: *HR* Enoxaparin 40 MG/0.4 ML SYRINGE SQ SCH (05:47)
[2018-05-25 06:41] LABS: ABG Base Excess -10 mEq/L (-2 to 3); ABG HCO3 19 mEq/L (21-27); ABG Oxygen Saturation 82 % (95-98); ABG PCO2 51 mmHg (35-45); ABG PH 7.18 pH Units (7.32-7.45); ABG PO2 57 mmHg (85-104); ABG TCO2 20 mEq/L (20-26)
[2018-05-25] MEDS ORDERED: Sodium Bicarbonate 150 MEQ in D5% in Water 1,000 ML IVC SCH ×2 (07:30→08:53)
--- NOTE | 2018-05-25 08:34 | Pulmonology Progress Note ---
<Pepe Gallardo M - Last Filed: 05/25/18 08:48> Date of Encounter: 05/25/18 Objective PUL Vital signs: Last Vital Signs Temp 97.6 F 05/25/18 07:28 Pulse 109 05/25/18 06:00 Resp 12 05/25/18 06:00 BP 117/80 05/25/18 04:00 Pulse Ox 89 05/25/18 06:00 Results - Laboratory Findings CBC and BMP: 05/25/18 03:50 05/25/18 03:50 ABG ABG pH 7.18 pH Units (7.32-7.45) L* 05/25/18 06:34 ABG pCO2 51 mmHg (35-45) H 05/25/18 06:34 ABG pO2 57 mmHg (85-104) L 05/25/18 06:34 ABG O2 Saturation 82 % (95-98) L 05/25/18 06:34 PT/INR, D-dimer PT 22.9 Seconds (9.4-12.1) H 05/24/18 07:49 D-Dimer 56607 ng/mLFEU (0-500) H 05/20/18 17:34 Abnormal lab findings: Abnormal lab results WBC 17.1 K/mcL (4.3-11.1) H 05/25/18 03:50 MCHC 31.1 g/dL (31.6-35.5) L 05/25/18 03:50 RDW 16.4 % (11.5-14.5) H 05/25/18 03:50 Plt Count 107 K/mcL (140-400) L 05/25/18 03:50 Immature Gran % 5.8 % (0-4) H 05/23/18 04:47 Band Neutrophils % 12.0 % (0-4) H 05/25/18 03:50 Myelocytes % 2.0 % (0) H 05/25/18 03:50 Neutrophils # 13.7 K/mcL (1.6-8.9) H 05/25/18 03:50 Monocytes # 1.4 K/mcL (0.0-1.3) H 05/25/18 03:50 Nucleated RBCs/100 WBC 1.7 /100 WBC (0) H 05/25/18 03:50 Platelet Estimate Decreased (Normal) L 05/25/18 03:50 PT 22.9 Seconds (9.4-12.1) H 05/24/18 07:49 D-Dimer 78450 ng/mLFEU (0-500) H 05/20/18 17:34 ABG pH 7.18 pH Units (7.32-7.45) L* 05/25/18 06:34 ABG pCO2 51 mmHg (35-45) H 05/25/18 06:34 ABG pO2 57 mmHg (85-104) L 05/25/18 06:34 ABG HCO3 19 mEq/L (21-27) L 05/25/18 06:34 ABG O2 Saturation 82 % (95-98) L 05/25/18 06:34 ABG Base Excess -10 mEq/L (-2 to 3) L 05/25/18 06:34 VBG pH 7.15 pH Units (7.32-7.42) L* 05/25/18 04:42 VBG pCO2 59 mmHg (41-51) H 05/25/18 04:42 Venous Sodium 134 mEq/L (135-145) L 05/24/18 13:31 Sodium 130 mEq/L (136-145) L 05/25/18 03:50 Venous Potassium 5.7 mEq/L (3.5-5.5) H 05/24/18 13:31 Potassium 6.5 mEq/L (3.5-5.1) H* 05/25/18 03:50 Carbon Dioxide 22 mEq/L (23-29) L 05/25/18 03:50 BUN 42 mg/dL (6-20) H 05/25/18 03:50 Creatinine 3.03 mg/dL (0.70-1.30) H 05/25/18 03:50 Est GFR ( Amer) 27 (> 60) L 05/25/18 03:50 Est GFR (Non-Af Amer) 22 (> 60) L 05/25/18 03:50 Glucose 198 mg/dL (70-105) H 05/25/18 03:50 Whole Bld Glucose 237 mg/dl (65-95) H 05/24/18 13:31 POC Glucose 241 mg/dL (70-99) H 05/24/18 23:55 Calcium 7.9 mg/dL (8.6-10.3) L 05/25/18 03:50 Magnesium 2.9 mg/dL (1.6-2.6) H 05/25/18 03:50 Total Bilirubin 10.3 mg/dL (0.3-1.0) H 05/25/18 03:50 Direct Bilirubin 6.6 mg/dL (0.0-0.2) H 05/25/18 03:50 Indirect Bilirubin 3.7 mg/dL (0.0-1.2) H 05/25/18 03:50 AST > 3000 Units/L (13-39) H 05/25/18 03:50 ALT > 500 Units/L (7-52) H 05/25/18 03:50 Alkaline Phosphatase 1292 Units/L (34-104) H 05/25/18 03:50 Lactate Dehydrogenase > 3600 Units/L (140-271) H 05/24/18 01:50 Serum Total Protein 5.3 g/dL (6.4-8.9) L 05/25/18 03:50 Albumin 3.0 g/dL (3.5-5.7) L 05/25/18 03:50 Globulin 2.3 g/dL (2.4-3.5) L 05/25/18 03:50 Lipase 87 Units/L (11-82) H 05/20/18 17:34 Carcinoembryonic Ag > 850.0 ng/mL (Less than 5.0) H 05/21/18 14:55 Ur Specific [place] 1.026 (1.010-1.025) H 05/20/18 18:35 Urine Ketones 15 mg/dL (Negative) H 05/20/18 18:35 Urine Nitrite Positive (Negative) A 05/20/18 18:35 Urine Bilirubin Large (Negative) H 05/20/18 18:35 Urine Urobilinogen 2.0 mg/dL (Normal) H 05/20/18 18:35 Ur Leukocyte Esterase Small (Negative) H 05/20/18 18:35 Urine Bacteria Moderate per hpf (None-Few) H 05/20/18 18:35 Ur Culture Indicated? YES (NO) A 05/20/18 18:35 - Microbiology Findings Microbiology Findings: Microbiology, Last 48 Hours 05/24/18 13:35 Gram Stain - Final Left Upper Lobe Lung - Clinical Findings Intake & Output: Intake & Output 05/24/18 05/25/18 05/25/18 23:59 07:59 15:59 Intake Total 10.1 / 10.1 1010.1 / 1010.1 Output Total 100 / 100 75 / 75 Balance -89.9 / -89.9 935.1 / 935.1 Weight 88.5 kg Consult Discharge Plan - Plan Referrals: Pilar Hilliard MD [Primary Care Provider] - - Attending Attestation I examined this patient and my medical decision-making was reviewed with the Resident Physician. I agree with the documented findings, disposition and alexia tment plan as described except to the extent set forth below. Patient seen and examined. Labs, radiology, chart personally reviewed. Agree with resident's history and physical, assessment, plan with following comments: HAND SURGEON: Patient follows commands, Pulmonary: Acceptable oxygenation and ventilation and status post bronchoscopy. Patient is likely have small cell lung cancer according to the preliminary result, however final is pending Cardiovascular: stable , however he is at risk with his hyperkalemia he could have arrhythmias. GI: Nutrition per dietary and GI prophylaxis per routine Heme: DVT prophylaxis per routine Renal; urine out put and renal funtion reviewed. Patient with hyperkalemia I suspect this is combination of his acute renal failure as well as possibly tumor lysis syndrome. Patient is on IV fluid with sodium bicarbonate Endorcine: blood glucose is monitored Lines: all lines checked and no evidence of infections Skin: skin care to prevent pressure ulcers per nursing routine care I had discussion with the patient in the presence of his family and ICU staff and he does not want to be treated with hemodialysis or any aggressive measures and considering hospice. The patient wants only to be comfortable and palliative care will be consulted. <Ryley Sheriff S - Last Filed: 05/25/18 09:14> Date of Encounter: 05/25/18 Time of Encounter: 08:34 Assessment and Plan (1) Metastatic cancer Current Visit: Yes Status: Acute Pt with 20lbs weight loss, increasing abd pain/distention, changes in bowel habits and SOB CT abd/pelvis on 05/20 - widespread metastatic disease involving chest, abd and pelvis including mediastinal and hilar LAD, diffuse pulmonary nodularity, innumerable heatic lesions, mesenteric LAD - lytic skeletal lesions - LLL peribronchovascular and infiltrative mass possible primary is small cell carcinoma CT head (+) for encephalomalacia, negative for mets to brain Pt displays no stigmata of paraneoplastic syndrome, however, he does have hyponatremia which may be due to underlying SCLC vs beer's potomania - pt denies bone pain - calcium is WNL - sodium has remained in the low 130's , however, he appears to be chronically hyponatremic CEA level >850 Abnormal liver fxn, likely due to liver mets and contributing to jaundice/scleral icterus Pt had bronchoscopy yesterday with Dr Gallardo, final report pending. Most likely has small cell lung carcinoma Plan: - heme-onc consulted, appreciate recommendations - await final pathology report from [facility] - pt wishes to not persue any aggressive measures, considering hospice palliative care consulted at this time, awaiting consult (2) Hyperkalemia Current Visit: Yes Status: Acute Potassium of 6.5 this morning Patient denies any active chest pain or palpitations - telemetry monitoring showed no stigmata of hyperkalemic changes Pt wishes to not pursue dialysis Most likely tumor lysis syndrome vs acute renal failure Plan: - palliative care consulted as per above - continue bicarb drip (3) Acute renal failure Current Visit: Yes Status: Acute See as above, likely due to tumor lysis syndrome Patient presented with creatinine of 0.62, trended up ot 1.91. - This morning creatinine 3.03 Potassium 6.5, increased from 6.2 Plan: - continue bicarb drip - pt is refusing HD at this time - palliative care consulted Qualifiers: Acute renal failure type: unspecified Qualified Code(s): N17.9 - Acute kidney failure, unspecified (4) Sepsis Current Visit: No Status: Acute Pt meets criteria for sepsis WBC count 17.1 Lactic acid 1.9 this morning HR 109, RR 12 BP has been stable over night Urine cx negative Still no signs of infxn present, likely due to progression of underlying malignancy Plan: - blood cx pending - continue levaquin as per primary Qualifiers: Sepsis type: sepsis due to unspecified organism Qualified Code(s): A41.9 - Sepsis, unspecified organism (5) COPD (chronic obstructive pulmonary disease) Current Visit: Yes Status: Acute NOT in acute exacerbation Qualifiers: COPD type: emphysema Emphysema type: unspecified Qualified Code(s): J43.9 - Emphysema, unspecified (6) Tobacco abuse Current Visit: Yes Status: Acute Counsled. (7) Severe protein-calorie malnutrition Current Visit: Yes Status: Acute Severe Protein Calorie Malnutrition r/t suspected Met's Cancer, has 20# wt loss X1 month and <75% of EEN > 7 days. Subjective Principal diagnosis: metastatic lung cancer Interval history: Pt is seen at bedside. He has no acute concern or complaint. He is comfortable. He wishes to not have dialysis. He is aware with palliative care coming to see him today. Objective PUL Vital signs: Last Vital Signs Temp 97.6 F 05/25/18 07:28 Pulse 109 05/25/18 06:00 Resp 12 05/25/18 06:00 BP 117/80 05/25/18 04:00 Pulse Ox 89 05/25/18 06:00 General appearance: no acute distress, lethargic Eyes: icteric ENT: oropharynx moist Effort: mildly labored Auscultation: bilateral: diminished breath sounds Cardiovascular: irregular rhythm Gastrointestinal: hypoactive bowel sounds, other ((+) distention) Integumentary: normal Extremities: no edema unable to assess due to mental status other (lethargic, sleepy) Results - Laboratory Findings CBC and BMP: 05/25/18 03:50 05/25/18 03:50 ABG ABG pH 7.18 pH Units (7.32-7.45) L* 05/25/18 06:34 ABG pCO2 51 mmHg (35-45) H 05/25/18 06:34 ABG pO2 57 mmHg (85-104) L 05/25/18 06:34 ABG O2 Saturation 82 % (95-98) L 05/25/18 06:34 PT/INR, D-dimer PT 22.9 Seconds (9.4-12.1) H 05/24/18 07:49 D-Dimer 20654 ng/mLFEU (0-500) H 05/20/18 17:34 Abnormal lab findings: Abnormal lab results WBC 17.1 K/mcL (4.3-11.1) H 05/25/18 03:50 MCHC 31.1 g/dL (31.6-35.5) L 05/25/18 03:50 RDW 16.4 % (11.5-14.5) H 05/25/18 03:50 Plt Count 107 K/mcL (140-400) L 05/25/18 03:50 Immature Gran % 5.8 % (0-4) H 05/23/18 04:47 Band Neutrophils % 12.0 % (0-4) H 05/25/18 03:50 Myelocytes % 2.0 % (0) H 05/25/18 03:50 Neutrophils # 13.7 K/mcL (1.6-8.9) H 05/25/18 03:50 Monocytes # 1.4 K/mcL (0.0-1.3) H 05/25/18 03:50 Nucleated RBCs/100 WBC 1.7 /100 WBC (0) H 05/25/18 03:50 Platelet Estimate Decreased (Normal) L 05/25/18 03:50 PT 22.9 Seconds (9.4-12.1) H 05/24/18 07:49 D-Dimer 71067 ng/mLFEU (0-500) H 05/20/18 17:34 ABG pH 7.18 pH Units (7.32-7.45) L* 05/25/18 06:34 ABG pCO2 51 mmHg (35-45) H 05/25/18 06:34 ABG pO2 57 mmHg (85-104) L 05/25/18 06:34 ABG HCO3 19 mEq/L (21-27) L 05/25/18 06:34 ABG O2 Saturation 82 % (95-98) L 05/25/18 06:34 ABG Base Excess -10 mEq/L (-2 to 3) L 05/25/18 06:34 VBG pH 7.15 pH Units (7.32-7.42) L* 05/25/18 04:42 VBG pCO2 59 mmHg (41-51) H 05/25/18 04:42 Venous Sodium 134 mEq/L (135-145) L 05/24/18 13:31 Sodium 130 mEq/L (136-145) L 05/25/18 03:50 Venous Potassium 5.7 mEq/L (3.5-5.5) H 05/24/18 13:31 Potassium 6.5 mEq/L (3.5-5.1) H* 05/25/18 03:50 Carbon Dioxide 22 mEq/L (23-29) L 05/25/18 03:50 BUN 42 mg/dL (6-20) H 05/25/18 03:50 Creatinine 3.03 mg/dL (0.70-1.30) H 05/25/18 03:50 Est GFR ( Amer) 27 (> 60) L 05/25/18 03:50 Est GFR (Non-Af Amer) 22 (> 60) L 05/25/18 03:50 Glucose 198 mg/dL (70-105) H 05/25/18 03:50 Whole Bld Glucose 237 mg/dl (65-95) H 05/24/18 13:31 POC Glucose 241 mg/dL (70-99) H 05/24/18 23:55 Calcium 7.9 mg/dL (8.6-10.3) L 05/25/18 03:50 Magnesium 2.9 mg/dL (1.6-2.6) H 05/25/18 03:50 Total Bilirubin 10.3 mg/dL (0.3-1.0) H 05/25/18 03:50 Direct Bilirubin 6.6 mg/dL (0.0-0.2) H 05/25/18 03:50 Indirect Bilirubin 3.7 mg/dL (0.0-1.2) H 05/25/18 03:50 AST > 3000 Units/L (13-39) H 05/25/18 03:50 ALT > 500 Units/L (7-52) H 05/25/18 03:50 Alkaline Phosphatase 1292 Units/L (34-104) H 05/25/18 03:50 Lactate Dehydrogenase > 3600 Units/L (140-271) H 05/24/18 01:50 Serum Total Protein 5.3 g/dL (6.4-8.9) L 05/25/18 03:50 Albumin 3.0 g/dL (3.5-5.7) L 05/25/18 03:50 Globulin 2.3 g/dL (2.4-3.5) L 05/25/18 03:50 Lipase 87 Units/L (11-82) H 05/20/18 17:34 Carcinoembryonic Ag > 850.0 ng/mL (Less than 5.0) H 05/21/18 14:55 Ur Specific [place] 1.026 (1.010-1.025) H 05/20/18 18:35 Urine Ketones 15 mg/dL (Negative) H 05/20/18 18:35 Urine Nitrite Positive (Negative) A 05/20/18 18:35 Urine Bilirubin Large (Negative) H 05/20/18 18:35 Urine Urobilinogen 2.0 mg/dL (Normal) H 05/20/18 18:35 Ur Leukocyte Esterase Small (Negative) H 05/20/18 18:35 Urine Bacteria Moderate per hpf (None-Few) H 05/20/18 18:35 Ur Culture Indicated? YES (NO) A 05/20/18 18:35 - Microbiology Findings Microbiology Findings: Microbiology, Last 48 Hours 05/24/18 13:35 Gram Stain - Final Left Upper Lobe Lung - Clinical Findings Intake & Output: Intake & Output 05/24/18 05/25/18 05/25/18 23:59 07:59 15:59 Intake Total 10.1 / 10.1 1010.1 / 1010.1 Output Total 100 / 100 75 / 75 Balance -89.9 / -89.9 935.1 / 935.1 Weight 88.5 kg
[2018-05-25] MEDS: Vitamin B Complex/Vit C/Vit E 1 EACH TABLET PO SCH (08:35)
[2018-05-25] MEDS: Aspirin Enteric Coated 81 MG Tablet PO SCH (08:35)
[2018-05-25] MEDS: Thiamine (B-1) 100 MG TABLET PO SCH (08:35)
[2018-05-25] MEDS: Folic Acid 1 MG TABLET PO SCH (08:35)
[2018-05-25] MEDS: amLODIPine 5 MG TABLET PO SCH (08:35)
[2018-05-25] MEDS: *HR* FentaNYL (PF) 100 MCG/2 ML VIAL IVP PRN (08:36)
--- NOTE | 2018-05-25 09:45 | Internal Med Progress Note ---
Hospitalist Progress Note - Encounter Date of Encounter: 05/25/18 Time of Encounter: 09:43 - Subjective Interval History: The patient is not really doing very well. He appears to be drowsy after all the pain medications and and and she will let us have been given to him. He is sitting upright and is uncomfortable . I have just assumed care of this patient and received sign out from the ICU resident. Looks like this is a complicated story of a patient who has chronic pipe smoking history and he is now presenting with metastatic small cell lung cancer at least based on preliminary pathology from her recently completed bronchoscopy. He also presented with sepsis type of picture although no significant blood culture results have been positive. He is on empiric Levaquin. He does appear to have declined over the last few days he has had significant weight loss consistent with his metastatic disease. He does have metastases everywhere to her and abdomen including the liver and LFTs are grossly abnormal and they are getting worse. His abdomen is distended and he appears uncomfortable he has still not had a bowel movement in the last 7 days. I had an extensive discussion with the family and the patient at the bedside and they have opted to go comfort care with hospice. Hospice has been consulted and spoken to and the patient will be moved out of the ICU to 2 a for de-escalation of care and resumption of hospice services. - Exam Vitals: Temp Pulse Resp BP Pulse Ox 97.6 F 109 12 117/80 89 05/25/18 07:28 05/25/18 06:00 05/25/18 06:00 05/25/18 04:00 05/25/18 06:00 Exam: GENERAL: Groggy, moderate distress, cooperative EYES: Icteric, EOMI EARS: External ears normal, canals clear OROPHARYNX: Lips, mucosa, and tongue normal. Teeth and gums normal. Oropharynx normal. NECK: JVD +3 cm, No carotid bruits, Carotid pulse normal contour, Supple LUNGS: Decreased breath sounds bilaterally, poor inspiratory effort CARDIAC: Tachycardia; no rubs, murmurs, or gallops ABDOMEN: Abdomen is distended and tense, nontender bowel sounds are diminished EXTREMITIES: Significant 2+ pitting edema bilateral lower extremities NEURO: Gait not tested and complete neurological examination is not possible due to patient condition PULSES: 2+ radial, 2+ carotid Rest of the exam is non contributory - Assessment and Plan (1) Metastatic cancer Current Visit: Yes Status: Acute Assessment and Plan: Most likely small cell lung cancer based on verbal pathology reports as documented in the EMR. I am yet to confirm it with a pathology report. This a ppears to be metastasized throughout his body including his liver. His CEA is significantly elevated and his LFTs are significantly worse today. Plan is to de-escalate all care and make the patient hospice. I personally spoken to from palliative medicine and they will be helping us out with comfort measures. I will move the patient over to 2 a with all his essential medications but de-escalate nonessential rx. He seems to be appropriately controlled with pain regimen fentanyl as well as, and comfortable with Ativan. These will be adjusted while on the floor. poor prognosis continues. His acidosis is getting worse and he does have hyperkalemia for which we can give him some insulin glucose regimen. I will also give him an enema to help relieve his bowels.. Docusate and 1 dose of lactulose and does not seem to have helped him. Patient does appear comfortable at this point and we plan to continue to de- escalate care in accordance with his wishes (2) HTN (hypertension) Current Visit: Yes Status: Chronic Assessment and Plan: Stable we will continue amlodipine on the floor. (3) COPD (chronic obstructive pulmonary disease) Current Visit: Yes Status: Acute Assessment and Plan: Patient continues to have no exacerbation at this point although he is becoming more and more acidotic on his ABG. Most likely a sign of continuing decline due to his underlying malignancy. Continue all supportive measures including a bicarbonate drip. Patient is on hospice (4) Abnormal liver function Current Visit: Yes Status: Acute Assessment and Plan: Most likely due to liver metastasis. Getting worse consistent with underlying malignancy and spread. I will stop checking his LFTs again because patient is being made comfort care. Avoid hepatic toxic medications (5) Alcoholism Current Visit: Yes Status: Chronic Assessment and Plan: Ciwa protocol on board. (6) History of CVA (cerebrovascular accident) Current Visit: Yes Status: Acute Assessment and Plan: Will maintain aspirin and statin. Will not reinitiate Plavix (7) HLD (hyperlipidemia) Current Visit: Yes Status: Acute Assessment and Plan: Continue home medications DVT Prophylaxis: Subcutaneous Lovenox - Time Spent with Patient Total time spent is greater than 50% in coordination of care (as documented) at patient's floor/unit and/or counseling patient: Greater than 35 minutes Plan of Care Discussed with: family (Goals of care discussed with the patient and his at the bedside and then discussion made with hospice physician over the phone. Time spent in advance cold of care discussion 39 minutes) Internal Medicine: Result - Labs CBC & Chem 7: 05/25/18 03:50 05/25/18 03:50 Labs: Short CBC 05/25/18 Range/Units 03:50 WBC 17.1 H (4.3-11.1) K/mcL Hgb 13.6 (12.9-16.9) g/dL Hct 43.8 (37.5-50.1) % Plt Count 107 L (140-400) K/mcL Neutrophils # 13.7 H (1.6-8.9) K/mcL BMP 05/24/18 05/24/18 05/24/18 11:00 12:28 14:17 Sodium 129 L Potassium 6.4 H 6.4 H 5.7 H Chloride 101 Carbon Dioxide 19 L BUN 37 H Creatinine 2.63 H Glucose 94 Calcium 8.6 05/24/18 05/25/18 19:55 03:50 Sodium 130 L 130 L Potassium 6.7 H* 6.5 H* Chloride 103 102 Carbon Dioxide 23 22 L BUN 38 H 42 H Creatinine 2.71 H 3.03 H Glucose 164 H 198 H Calcium 8.3 L 7.9 L Liver Function 05/25/18 Range/Units 03:50 Total Bilirubin 10.3 H (0.3-1.0) mg/dL Direct Bilirubin 6.6 H (0.0-0.2) mg/dL AST > 3000 H (13-39) Units/L ALT > 500 H (7-52) Units/L Alkaline Phosphatase 1292 H (34-104) Units/L Albumin 3.0 L (3.5-5.7) g/dL - ABG Interpretation ABG results: ABG ABG pH 7.18 pH Units (7.32-7.45) L* 05/25/18 06:34 ABG pCO2 51 mmHg (35-45) H 05/25/18 06:34 ABG pO2 57 mmHg (85-104) L 05/25/18 06:34 ABG O2 Saturation 82 % (95-98) L 05/25/18 06:34 PT/INR, D-dimer PT 22.9 Seconds (9.4-12.1) H 05/24/18 07:49 D-Dimer 73170 ng/mLFEU (0-500) H 05/20/18 17:34 - Impressions Impressions Abdomen/Pelvis/Transvag US 05/24/18 10:28 IMPRESSION: No significant ascites to safely perform paracentesis D/ / Ankit Gresham MD / Ankit Gresham MD Interpreting Provider: Ankit Gresham MD Head CT 05/24/18 15:30 IMPRESSION: 1. No acute intracranial abnormality. 2. Large areas of encephalomalacia are noted in the left cerebral hemisphere are stable, with new areas of encephalomalacia in the left basal ganglia. 3. No CT findings to suggest metastatic disease intracranially. D/ / 05/24/2018 16:49:00 Nathan Latif MD / peggy Interpreting Provider: Nathan Latif MD Echocardiogram 05/24/18 17:57 Impressions: LVEF 65%. Normal LV chamber size, wall thickness and function. Mild left ventricular diastolic dysfunction. Grossly normal right ventricular structure and function. No evidence of pulmonary hypertension. No significant valvular dysfunction. Left Ventricular Wall Motion: Rest Echo Findings All wall segments showed normal motion. Findings: Study Quality * Technically sub-optimal due to poor echocardiographic windows. ECG Findings * Normal sinus rhythm. Left Ventricle * LVEF 65%. * Normal LV chamber size, wall thickness and function. * Mild left ventricular diastolic dysfunction. Right Ventricle * Grossly normal right ventricular structure and function. Left Atrium * Normal left atrial size. Right Atrium * Normal right atrial size. Aortic Valve * Aortic valve not well visualized. * No aortic regurgitation. * No aortic stenosis. Mitral Valve * Normal mitral valve structure and function. * No mitral regurgitation. * No mitral stenosis. Tricuspid Valve * Normal tricuspid valve structure and function. * Trace tricuspid regurgitation. * No evidence of pulmonary hypertension. Pulmonic Valve * Pulmonic valve not well visualized. Aorta * Normally sized aortic root. Pericardium * The pericardium appears normal. IVC * The IVC is not well evaluated. Pulmonary Artery * Pulmonary artery not well visualized. Consult Discharge Plan - Plan Referrals: Pilar Hilliard MD [Primary Care Provider] - (2) HTN (hypertension) Qualifiers: Hypertension type: essential hypertension Qualified Code(s): I10 - Essential (primary) hypertension (3) COPD (chronic obstructive pulmonary disease) Qualifiers: COPD type: emphysema Emphysema type: unspecified Qualified Code(s): J43.9 - Emphysema, unspecified (7) HLD (hyperlipidemia) Qualifiers: Hyperlipidemia type: unspecified Qualified Code(s): E78.5 - Hyperlipidemia, unspecified
[2018-05-25 10:11] VITALS: BP 111/81
--- NOTE | 2018-05-25 11:18 | Discharge Summary ---
- NOTES TO OUTPATIENT PROVIDER Notes to Outpatient Provider: Transfer to Inpatient Hospice Orders not resulted at time of discharge: Pending orders 05/20/18 17:44 Culture,Blood [BC] Stat 05/21/18 14:55 Cancer Antigen-GI (CA 19-9) Routine Erythropoietin Routine 05/24/18 01:50 Cancer Antigen-GI (CA 19-9) AM 0400 05/24/18 10:28 Amylase,Peritoneal Fluid [BF] Stat Cell Cnt w Dif, Peritoneal Fl [BF] Stat Glucose,Peritoneal Fluid [BF] Stat LDH,Peritoneal Fluid [BF] Stat Total Protein,Peritoneal Fluid [BF] Stat 05/24/18 13:35 Culture,Respiratory [RM] Routine Gram Stain [RM] Routine 05/24/18 14:01 Cytology [PTH] Routine 05/24/18 14:05 Cytology [PTH] Routine 05/25/18 10:48 BMP [Basic Metabolic Panel] Routine Date of Encounter: 05/25/18 Time of Encounter: 11:16 - Discharge Diagnosis (1) Metastatic cancer Priority: Primary Status: Acute (2) HTN (hypertension) Priority: Secondary Status: Chronic Qualifiers: Hypertension type: essential hypertension Qualified Code(s): I10 - Essential (primary) hypertension (3) COPD (chronic obstructive pulmonary disease) Priority: Secondary Status: Acute Qualifiers: COPD type: emphysema Emphysema type: unspecified Qualified Code(s): J43.9 - Emphysema, unspecified (4) Abnormal liver function Priority: Secondary Status: Acute (5) Alcoholism Priority: Secondary Status: Chronic (6) History of CVA (cerebrovascular accident) Priority: Secondary Status: Acute (7) HLD (hyperlipidemia) Priority: Secondary Status: Acute Qualifiers: Hyperlipidemia type: unspecified Qualified Code(s): E78.5 - Hyperlipidemia, unspecified Hospital course: Mr. Wong is a 52 year old male w complicated past medical history. He presented to hospital with abdominal pain, sepsis like picture and found to have metastatic lung malignancy - most likely Small cell lung ca. He has had a complicated course in ICU and his labs have looked worse every single day. He has an extremely poor prognosis and after family discussion, we decided to make him hospice. Inpatient hospice has evaluated the patient and will be appropriate for inpatient hospice. We will transfer service to them. Already been made DNR- comfort care. for details of todays' exam, please refer to progress note Discharge discussed with: family - Time Spent with Patient Total time spent providing and/or coordinating discharge services:40 minutes - Discharge Medications Home Medications: Aspirin Enteric Coated [Aspirin EC] 81 mg PO DAILY tablet. 05/25/18 [Rx] Atorvastatin [Lipitor] 40 mg PO DAILY tablet 05/25/18 [Rx] Docusate [Colace] 100 mg PO BID PRN capsule 05/25/18 [Rx] Enoxaparin [Lovenox] 40 mg SQ 0600 syringe 05/25/18 [Rx] Folic Acid 1 mg PO DAILY tablet 05/25/18 [Rx] Ondansetron [Zofran] 4 mg IVP Q6HR PRN vial 05/25/18 [Rx] Thiamine (B-1) [Vitamin B-1] 100 mg PO DAILY tablet 05/25/18 [Rx] Vitamin B Complex/Vit C/Vit E [Stresstab] 1 each PO DAILY tablet 05/25/18 [Rx] amLODIPine [Norvasc] 5 mg PO DAILY tablet 05/25/18 [Rx] Allergies/Adverse Reactions: Allergy/AdvReac Type Severity Reaction Status Date / Time Penicillins [PCN] Allergy Anaphylaxis Verified 05/20/18 16:15 Date of admission: 05/20/18 23:27 Primary care physician: Pilar Hilliard MD Consults: 05/21/18 09:15 Consult to Oncology [CONS] Routine Consulting Provider: [facility] Reason for Consult: Metastatic cancer Call Completed: Yes 05/21/18 09:22 Consult to [employer] Processing Supervisor [CONS] Routine Reason for SW Consult: Alcoholism, metastatic cancer 05/23/18 18:18 Consult to Pulmonology [CONS] Routine Consulting Provider: [facility]m [facility] Reason for Consult: Evaluate if LLL mass amendable to bronch, widespread metastatic disease SSLC verss GI primary? Patient had plaxix dose ~9 am 05/23-cannot pursue liver bx---will call in AM Call Completed: No 05/23/18 21:36 Consult to Interventional Radiology [CONS] Routine Consulting Provider: Radiology Interventional Cols Reason for Consult: Diagnostic and therapeutic drainage of ascites Time Notified: 21:36 Call Completed: No 05/25/18 07:44 Consult to Palliative Care [CONS] Routine Comment: Consulting Provider: Palliative Care Sofia Reason for Consult: poor prognosis of metastatic cancer with hyperkalemia and hyponatremia refusing dialysis, pulm consulting palliative Call Completed: Yes - Constitutional Vitals: Temp Pulse Resp BP Pulse Ox 97.6 F 101 12 111/81 90 05/25/18 07:28 05/25/18 08:00 05/25/18 08:00 05/25/18 08:00 05/25/18 08:00 Exam: please refer to progress note filed juan carlos howe - Patient Status Disposition: Hospice - Medical Facility Condition: Critical Functional capacity at discharge: bed bound Overall status at discharge: other (critical) - Discharge Instructions Follow Up With: Pilar Hilliard MD [Primary Care Provider] - - Diet and Activity Activity: other (as per hospice care) Diet: other (as per hspice care)
[2018-05-25 11:30] LABS: Calcium 7.7 mg/dL (8.6-10.3)
[2018-05-25 11:31] LABS: Potassium 6.7 mEq/L (3.5-5.1)
--- NOTE | 2018-05-25 13:12 | Event Note ---
Date of Encounter: 05/25/18 Time of Encounter: 10:45 Consult received for this very unfortunate gentlemen, with new diagnosis of metastatic cancer, with multiorgan failure. He has had discussion with hospitalist this am, and declines any further aggressive intervention, desires comfort care only. Will be meeting with him and family and plan on transition to inpatient hospice. Refer to Full consult note completed with transition to general inpatient hospice.
--- NOTE | 2018-05-25 15:40 | Electrocardiograph Report ---
[address] [place], [place] [address] Test Date: 2018-05-23 Pat Name: Eldon Wong Department: 115 Room: [facility] Gender: M Admitting Supervisor: : 1965 Requested By: Uday Stroud Order Number: [id number] Reading MD: Tara Ríos Measurements Intervals [place] Rate: 107 P: 55 SC: 139 QRS: 78 QRSD: 95 T: 38 QT: 336 QTc: 399 Interpretive Statements SINUS TACHYCARDIA V4 not suitable for interpretation Electronically Signed On 05-25-2018 15:39:06 EST by Tara Ríos
--- NOTE | 2018-05-25 15:41 | Electrocardiograph Report ---
[address] [address] Test Date: 2018-05-24 Pat Name: Eldon Wong Department: 112 Room: [facility] Gender: M [employer] Teacher: RACHELLE : 1965 Requested By: Jose De Leon Order Number: [id number] Reading MD: Tara Ríos Measurements Intervals [place] Rate: 110 P: 53 AR: 137 QRS: 57 QRSD: 96 T: 11 QT: 328 QTc: 393 Interpretive Statements SINUS TACHYCARDIA ABNORMAL RHYTHM ECG Electronically Signed On 05-25-2018 15:39:57 EST by Tara Ríos
[2018-05-26] MEDS ORDERED: Levofloxacin 750 MG/150 ML 750 MG/150 ML BAG IVPB SCH (00:01)
[2018-05-26] MEDS ORDERED: *HR* Enoxaparin 30 MG/0.3 ML SYRINGE SQ SCH (06:00)
[2018-05-26 10:35] LABS: Cancer Antigen-GI (CA 19-9) 5099 U/mL (0-37); Erythropoietin 28 mU/mL (4-27)
== END 2018-05-25 12:19 | disposition hospice, inpatient (51) | DRG 136 ==
LOC: 3ANU 15:46 → EMEROOARM 15:46 → SUATTDRO 23:27 → OBSVTOIN 23:27 → 3ANU 05-21 01:20 → ICNU 05-24 01:54
PROVIDERS: ADMIT Pediatrics; ATTEND Internal Medicine